=== PATIENT | male | born 1960 | race Caucasian/White ===

== ENCOUNTER 2017-10-09 13:39 | Emergency (ER) | payer OTHER, BC ==
[2017-10-09 13:43] VITALS: TEMP 98; BMI 31.1
[2017-10-09] MEDS ORDERED: KETOROLAC TROMETHAMINE 30 MG/1 ML VIAL IM ONE (13:59)
[2017-10-09] MEDS ORDERED: KETOROLAC TROMETHAMINE 30 MG/1 ML VIAL ONE (14:02)
--- NOTE | 2017-10-09 14:03 | PDOC ---
History of Present Illness - General Chief Complaint: Pain, Acute Stated Complaint: LEFT LOWER BACK PAIN Time Seen by Provider: 10/09/17 13:41 History Source: Patient, Old Records Exam Limitations: No Limitations - History of Present Illness Initial Comments: 10/09/17 14:04 57 year old male c/ hx of L3-L4 disc fusion 2010, hx chronic pain on suboxone presents with acute on chronic back pain. Pt reports that the pain has been exacerbated since July 2017. He has been utilizing complementary medicine, including chiropractor and accupuncture with some relief. Has been taking his suxboxone. On 09/14, the patient has received an MRI which was reportedly a L2 herniation. Pt has pain that radiates from the back to the left leg. Worse with movements. Pt last took his dose of suboxone yesterday. Denies urinary or bowel incontinence. Denies saddle anesthesia. Past History - Past Medical History Allergies/Adverse Reactions: Allergies Allergy/AdvReac Type Severity Reaction Status Date / Time No Known Allergies Allergy Verified 10/09/17 14:01 Home Medications: Ambulatory Orders Duloxetine HCl [Cymbalta] 30 mg PO DAILY 10/09/17 Losartan Potassium [Cozaar] 0 mg PO DAILY 10/09/17 Metoprolol Succinate 0 mg PO DAILY 10/09/17 Naproxen 500 mg PO BID PRN #20 tablet 10/09/17 Oxycodone HCl/Acetaminophen [Percocet 5-325 mg Tablet] 1 tab PO Q6H PRN #20 tablet MDD 4 10/09/17 COPD: No DVT: No HTN: Yes - Suicide/Smoking/Psychosocial Hx Smoking History: Never smoked Have you smoked in the past 12 months: No Hx Alcohol Use: No Drug/Substance Use Hx: No Substance Use Type: None Review of Systems - Review of Systems Able to Perform ROS?: Yes Comments:: 10/09/17 14:15 GENERAL/CONSTITUTIONAL: No fever or chills. No weakness. HEAD, EYES, EARS, NOSE AND THROAT: No change in vision. No ear pain or discharge. No sore throat. CARDIOVASCULAR: No chest pain or shortness of breath. RESPIRATORY: No cough, wheezing, or hemoptysis. GASTROINTESTINAL: No nausea, vomiting, diarrhea or constipation. GENITOURINARY: No dysuria, frequency, or change in urination. MUSCULOSKELETAL: No joint or muscle swelling or pain. No neck. + back pain SKIN: No rash NEUROLOGIC: No headache, vertigo, loss of consciousness, or change in strength/ sensation. ENDOCRINE: No increased thirst. No abnormal weight change. HEMATOLOGIC/LYMPHATIC: No anemia, easy bleeding, or history of blood clots. ALLERGIC/IMMUNOLOGIC: No hives or skin allergy. *Physical Exam - Vital Signs Last Vital Signs Temp Pulse Resp BP Pulse Ox 98 F 96 H 18 161/103 99 10/09/17 13:40 10/09/17 13:40 10/09/17 13:40 10/09/17 13:40 10/09/17 13:40 - Physical Exam Comments: 10/09/17 14:15 GENERAL: Awake, alert, and fully oriented, in no acute distress HEAD: No signs of trauma EYES: EOMI, sclera anicteric, conjunctiva clear ENT: Auricles normal inspection, hearing grossly normal, nares patent, oropharynx clear without exudates. Moist mucosa NECK: Normal ROM, supple BACK: TTP left lower back. s/p surgical scar on lumbar spine. Reproducible with palpation. EXTREMITIES: Normal range of motion, no edema. No clubbing or cyanosis. No cords, erythema, or tenderness NEUROLOGICAL: Cranial nerves II through XII grossly intact. Normal speech, normal gait SKIN: Warm, Dry, normal turgor, no rashes or lesions noted. Medical Decision Making - Medical Decision Making 10/09/17 14:19 Vital Signs Temp Pulse Resp BP Pulse Ox 98 F 87 18 160/101 99 10/09/17 13:40 10/09/17 14:10 10/09/17 13:40 10/09/17 14:10 10/09/17 13:40 Acute on chronic back pain likely 2/2 herniated L2 disc. [employer] Registry Reviewed: Patient Name: José Hansen Date: 1960 Address: [address] [place] [id number] Sex: Male Rx Written Rx Dispensed Drug Quantity Days Supply Prescriber Name 09/22/2017 09/26/2017 zolpidem tart er 12.5 mg tab 15 15 Jaime Merlos MD 09/19/2017 09/19/2017 buprenorphine 8 mg tablet sl 45 15 Jaime Merlos C 09/12/2017 09/12/2017 buprenorphine 8 mg tablet sl 21 7 Jaime Merlos C Patient Name: José Hansen Date: 1960 Address: [address] [place] [address] [place] [address] Sex: Male Rx Written Rx Dispensed Drug Quantity Days Supply Prescriber Name 08/29/2017 08/29/2017 buprenorphine 8 mg tablet sl 45 15 Jaime Merlos MD 08/23/2017 08/23/2017 buprenorphine 8 mg tablet sl 18 6 Jaime Merlos MD 08/02/2017 08/03/2017 buprenorphine 2 mg tablet sl 150 30 Jaime Merlos MD 07/18/2017 07/18/2017 buprenorphine 2 mg tablet sl 90 30 Jaime Merlos MD 06/13/2017 06/15/2017 buprenorphine 2 mg tablet sl 112 29 Jaime Merlos MD 05/26/2017 05/26/2017 buprenorphine 2 mg tablet sl 90 30 Jaime Merlos MD 04/04/2017 05/24/2017 buprenorphine 8 mg tablet sl 14 9 Jaime Merlos MD 05/03/2017 05/03/2017 buprenorphine 2 mg tablet sl 50 25 Jaime Merlos MD 04/12/2017 04/13/2017 buprenorphine 2 mg tablet sl 45 15 Jaime Merlos MD 03/25/2017 03/25/2017 buprenorphine 8 mg tablet sl 22 15 Jaime Merlos MD 03/17/2017 03/17/2017 buprenorphine-naloxone 2-0.5 mg sl tablet 90 30 Jaime Merlos MD 03/04/2017 03/04/2017 zolpidem tartrate 10 mg tablet 7 7 Jaime Merlos MD 03/04/2017 03/04/2017 oxycodone hcl er 40 mg tablet 86 30 Jaime Merlos MD 03/04/2017 03/04/2017 oxycodone hcl 15 mg tablet 135 23 Jaime Merlos MD 02/03/2017 02/03/2017 zolpidem tartrate 10 mg tablet 7 7 Jaime Merlos MD 02/03/2017 02/03/2017 oxycodone hcl 15 mg tablet 135 23 Jaime Merlos MD 02/03/2017 02/03/2017 oxycodone hcl er 40 mg tablet 86 30 Jaime Merlos MD 01/03/2017 01/03/2017 oxycodone hcl 20 mg tablet 135 23 Jaime Merlos MD 01/03/2017 01/03/2017 oxycodone hcl er 40 mg tablet 86 29 Jaime Merlos MD 12/07/2016 12/08/2016 oxycodone hcl er 40 mg tablet 86 30 Jaime Merlos MD 12/07/2016 12/08/2016 oxycodone hcl 20 mg tablet 135 30 Jaime Merlos MD 11/09/2016 11/09/2016 oxycodone hcl er 40 mg tablet 86 30 Jaime Merlos MD 11/09/2016 11/09/2016 oxycodone hcl 20 mg tablet 135 23 Jaime Merlos MD 10/28/2016 11/06/2016 oxycodone hcl er 40 mg tablet 9 3 Luna Luna 10/28/2016 11/06/2016 oxycodone hcl 15 mg tablet 12 3 Luna Luna The patient's information when given to me confirms his [employer]ENT registry. Pt absolutely reports to me that his last dose of suboxone was over 24 hours ago. I advised the patient regarding the concerns for potentially mixing suboxone with percocet. The patient states that he understands not to mix the two. I suspect that the patient is having acute on chronic back pain. No red flags. Will give a short course of naproxen and percocet. Pt will follow up with his doctor this week. *DC/Admit/Observation/Transfer Diagnosis at time of Disposition: Back pain Qualifiers: Back pain location: back pain in unspecified location Chronicity: unspecified Back pain laterality: unspecified Qualified Code(s): M54.9 - Dorsalgia, unspecified - Discharge Dispostion Disposition: HOME Condition at time of disposition: Stable Decision to Admit order: No - Prescriptions Prescriptions: Naproxen 500 mg PO BID PRN #20 tablet PRN Reason: Back Pain Oxycodone HCl/Acetaminophen [Percocet 5-325 mg Tablet] 1 tab PO Q6H PRN #20 tablet MDD 4 PRN Reason: Severe Back Pain - Referrals Referrals: Jaime Merlos MD [Non Staff, Medical] - - Patient Instructions Printed Discharge Instructions: DI for Low Back Pain Additional Instructions: Please take 500 mg naproxen every 12 hours as needed for pain. For additional relief, please take a tablet of percocet every 6 hours as needed. Please do not mix percocet with suboxone. Mixing these medications will make you feel ill. You must follow up with Dr. Jaime Merlos and discuss what has happened with your back. Call tomorrow and schedule an appointment. - Post Discharge Activity
[2017-10-09 14:10] VITALS: BP 160/101; PULSE 87
== END 2017-10-09 14:10 | disposition home or self-care (01) ==
LOC: FER 13:39
PROC: 3E0233Z Introduction of Anti-inflammatory into Muscle, Percutaneous Approach (ICD-10-PCS; principal; 2017-10-09)
PROC: 3E0233Z Introduction of Anti-inflammatory into Muscle, Percutaneous Approach (ICD-10-PCS; 2017-10-09)
DX: M54.9 Dorsalgia, unspecified (principal); I10 Essential (primary) hypertension; G89.29 Other chronic pain
CPT/HCPCS: 99281-25

== ENCOUNTER 2017-12-19 09:12 | Inpatient (IN) | payer OTHER, BC ==
--- NOTE | 2017-12-19 10:06 | PDOC ---
History of Present Illness - General Chief Complaint: Eye Problem Stated Complaint: forgetfull Time Seen by Provider: 12/19/17 09:22 History Source: Patient Exam Limitations: No Limitations - History of Present Illness Initial Comments: 12/19/17 10:06 57y M hx of htn presenst with complaint of vision changes. 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 The pt denies any n/v, severe headache, numbness/tinglign/weakness , back pain, neck pain, cp, palpitations, n/v, abd pain, diarrhea, melena, bpr, dysuria, fever/chills. pt has enver felt lik this before. tPA Exclusion Checklist 0-3hr - Time Elapsed Date last known well: 12/15/17 Time last known well: 20:00 Elaspsed time: 3 Day(s) and 19 Hour(s) and 6 Minutes - Thrombolytic Therapy Candidate Is the patient eligible for Thrombolytic Therapy?: No - Ineligibility reason(s) Reasons No tPA given: Outside of window - delayed arrival NIH Stroke Scale - Last Known Well Date/Time & Onset Date Last Known Well: 12/15/17 Time Last Known Well: 20:00 - Initial Evaluation Level of consciousness: Alert Ask patient the month and their age: Answers both correctly Ask patient to open & close eyes; make fist and let go: Obeys both correctly Best gaze (horizontal eye movement): Normal Visual field testing: Complete hemianopia Facial paresis (Show teeth/raise eyebrows/close eyes tight): Normal symmetrical movement Motor Function: Left Arm: Normal Motor Function: Right Arm: Normal (extends arm 90 (or 45) degrees for 10 seconds without drift Motor Function: Left Leg: Normal (extends leg 30 degrees for 5 seconds without drift) Motor Function: Right Leg: Normal (extends leg 30 degrees for 5 seconds without drift) Limb Ataxia: No ataxia Sensory(Use pinprick test arms,legs,trunk,face/side to side): Normal Best language (Describe picture, name items, read sentences): No Aphasia Dysarthria (read several words): Normal articulation Extinction and Inattention: No abnormality - Total Score NIH Stroke Scale Score: 2 Past History - Past Medical History Allergies/Adverse Reactions: Allergies Allergy/AdvReac Type Severity Reaction Status Date / Time No Known Allergies Allergy Verified 10/09/17 14:01 Home Medications: Ambulatory Orders Duloxetine HCl [Cymbalta] 60 mg PO DAILY 10/09/17 Naproxen 500 mg PO BID PRN #20 tablet 10/09/17 Buprenorphine HCl/Naloxone HCl [Zubsolv 8.6-2.1 mg Tablet Sl] 0.25 each SL DAILY 12/19/17 Losartan Potassium [Cozaar -] 50 mg PO DAILY 12/19/17 Metoprolol Succinate [Toprol Xl] 50 mg PO DAILY 12/19/17 COPD: No CHF: No DVT: No HTN: Yes - Suicide/Smoking/Psychosocial Hx Smoking History: Never smoked Have you smoked in the past 12 months: No Information on smoking cessation initiated: No Hx Alcohol Use: No Drug/Substance Use Hx: No Substance Use Type: None Review of Systems - Review of Systems Able to Perform ROS?: Yes Comments:: 12/19/17 10:08 Constitutional - no reported Fever, Chills, HEENT: +vision changes, no reported sore throat Respiratory: no reported cough, sob, hemoptysis Cardiac: no reported chest pain, palpitations, light headedness, leg swelling Abd/GI: no reported abd pain, nausea, vomiting, blood per rectum, melena, diarrhea : no reported dysuria, frequency, discharge Musculskelatal - no reported back pain, joint swelling skin - no reported bruising, erythema, rash neurological: no reported headache, numbness, focal weakness, tingling, ataxia, hematologic: no reported easy bruising, easy bleeding *Physical Exam - Vital Signs Last Vital Signs Temp Pulse Resp BP Pulse Ox 98.3 F 83 20 158/108 H 100 12/19/17 09:12 12/19/17 09:12 12/19/17 09:12 12/19/17 09:12 12/19/17 09:12 - Physical Exam Comments: 12/19/17 10:08 GENERAL: The patient is awake, alert, and fully oriented, Nontoxic - in no acute distress. HEAD: Normocephalic, atraumatic. EYES: extraocular movements intact, sclera anicteric, conjunctiva clear. ENT: Normal voice, Moist mucous membranes. NECK: Normal range of motion, supple LUNGS: Breath sounds equal, clear to auscultation bilaterally. No wheezes, no rhonchi, no rales. HEART: Regular rate and rhythm, normal S1 and S2 without murmur, rub or gallop. ABDOMEN: Soft, nontender, normoactive bowel sounds. No guarding, no rebound. . No CVA tenderness EXTREMITIES: Normal range of motion, no edema. No clubbing or cyanosis. No cords, erythema, or tenderness. PSYCH: Normal mood, normal affect. SKIN: Warm, Dry, normal turgor, NEURO: Mental status: The patient is oriented x3. Cranial nerves: facial sensation symmetric, facial motor symmetric, on confrontation - decreased peripheral vision on L side b/l Motor: The upper extremities are 5 over 5 in all muscle groups. The lower extremities are 5 over 5 in all muscle groups. Negative pronator drift Sensation: Sensation is intact to light touch throughout. romberg negative Cerebellar: Pjmzmx-oftryq-ugam is normal in both upper extremities. rapid alternating movements are normal. Gait: Normal. Heel and toe walking are normal. Tandem gait is normal. Heart Score/ECG Review - ECG Impressions Comment:: 12/19/17 10:54 Twelve-lead EKG was performed and reviewed by me. There is normal sinus rhythm with a normal rate. The axis is normal. abnormal r wave prgoression ED Treatment Course - LABORATORY CBC & Chemistry Diagram: 12/19/17 10:39 12/19/17 10:39 Medical Decision Making - Medical Decision Making 12/19/17 10:10 Patient presenting with hemianopsia on L eye yesi ck labs, ekg, to r/o anemia, metabolic derangement, arrythemia ct head to r/o cva, mass effect anticipate neuro consultation and may need MRI 12/19/17 13:[address] noted for gith posterior cebral artery territory infarct will admit for further management paged neuro 12/19/17 13:30 Case halley Young requests MRI / MRA brain and cardiology consutlation 12/19/17 13:35 case halley kohler with admissio nfor further management pt did not take his BP meds this morning will give him his meds now will admit to tele under dr. nettles service Case discussed in detail with admitting physician including history, physical exam and ancillary studies. Admitting physician has assumed care for the patient, will follow all pending diagnostics and will complete the evaluation and treatment. 12/19/17 13:49 case will be admitted under dr. kern service requets transfer to [facility] for admission for stroke unit *DC/Admit/Observation/Transfer Diagnosis at time of Disposition: CVA (cerebral vascular accident) Qualifiers: CVA mechanism: occlusion Precerebral and cerebral artery: posterior cerebral artery Laterality of affected vessel: right Qualified Code(s): I63.531 - Cerebral infarction due to unspecified occlusion or stenosis of right posterior cerebral artery Hypertension Qualifiers: Hypertension type: unspecified Qualified Code(s): I10 - Essential (primary) hypertension - Discharge Dispostion Condition at time of disposition: Guarded Decision to Admit order: Yes - Referrals - Patient Instructions - Post Discharge Activity
[2017-12-19 11:32] LABS: ALBUMIN 3.7 g/dl (3.5-5.0); ALK PHOS 114 U/L (32-92); ANION GAP 7 MMOL/L (8-16); BILIRUBIN,TOTAL 0.6 mg/dl (0.2-1.0); BLOOD UREA NITROGEN 14 mg/dl (7-18); CALCIUM 9.1 mg/dl (8.4-10.2); CHLORIDE 102 mmol/L (98-107); CO2 27 mmol/L (22-28); CREATININE 0.7 mg/dl (0.6-1.3); GLUCOSE,RANDOM 131 mg/dl (74-106); POTASSIUM 3.9 mmol/L (3.5-5.1); SGOT/AST 21 U/L (10-42); SGPT/ALT 24 U/L (10-40); SODIUM 136 mmol/L (136-145); TOT PROT 6.5 g/dl (6.4-8.3)
[2017-12-19 13:08] LABS: BASO % 0.7 % (0-2.0); EOS % 2.6 % (0-4.5); HEMATOCRIT 42.4 % (35.4-49); HEMOGLOBIN 13.9 GM/dl (11.7-16.9); LYMPH % 21.1 % (8-40); MCH 29.1 pg (25.7-33.7); MCHC 32.7 g/dl (32.0-35.9); MEAN PLT VOLUME 7.4 fl (7.5-11.1); MONO % 7.6 % (3.8-10.2); PLATELET COUNT 334 K/MM3 (134-434); RBC 4.76 M/mm3 (4.00-5.60); RDW 12.8 % (11.9-15.9); WHITE BLOOD COUNT 8.7 K/mm3 (4.0-10.8)
[2017-12-19] MEDS ORDERED: ASPIRIN 81 MG CHEWABLE TABLETS PO ONE (13:23)
[2017-12-19] MEDS ORDERED: ASPIRIN 81 MG CHEWABLE TABLETS ONE (13:33)
[2017-12-19] MEDS ORDERED: METOPROLOL TARTRATE 50 MG TABLET (FP) PO ONE (13:36)
[2017-12-19] MEDS ORDERED: LOSARTAN POTASSIUM 50 MG TABLET (FP) PO ONE (13:36)
[2017-12-19] MEDS ORDERED: morphine CARPU-JECT 4 MG/1 ML DISP.SYRIN IVPUSH ONE (16:31)
[2017-12-19] MEDS ORDERED: morphine SULFATE 4 MG/ML VIAL ONE (16:34)
[2017-12-19] MEDS ORDERED: FLU VACCINE QUAD 60 MCG/0.5 ML (MDV 18-19) IM ONE (18:49)
[2017-12-19 18:51] VITALS: BMI 31.5
--- NOTE | 2017-12-19 19:50 | HP ---
Admitting History and Physical - Primary Care Physician PCP: Hudson Shepard - Admission History of Present Illness: 57y M hx of htn presenst with complaint of vision changes. 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 The pt denies any n/v, severe headache, numbness/tinglign/weakness , back pain, neck pain, cp, palpitations, n/v, abd pain, diarrhea, melena, bpr, dysuria, fever/chills. pt has enver felt lik this before. - Past Medical History Cardiovascular: Yes: HTN - Smoking History Smoking history: Never smoked Have you smoked in the past 12 months: No - Alcohol/Substance Use Hx Alcohol Use: No Home Medications - Allergies Allergies/Adverse Reactions: Allergies Allergy/AdvReac Type Severity Reaction Status Date / Time No Known Allergies Allergy Verified 10/09/17 14:01 - Home Medications Home Medications: Ambulatory Orders Duloxetine HCl [Cymbalta] 60 mg PO DAILY 10/09/17 Naproxen 500 mg PO BID PRN #20 tablet 10/09/17 Buprenorphine HCl/Naloxone HCl [Zubsolv 8.6-2.1 mg Tablet Sl] 0.25 each SL DAILY 12/19/17 Losartan Potassium [Cozaar -] 50 mg PO DAILY 12/19/17 Metoprolol Succinate [Toprol Xl] 50 mg PO DAILY 12/19/17 Clopidogrel Bisulfate [Plavix -] 75 mg PO DAILY #30 tablet 12/20/17 Rosuvastatin Calcium [Crestor] 5 mg PO DAILY #30 tablet 12/20/17 Physical Examination Vital Signs: Vital Signs Temperature 97.8 F 12/19/17 18:26 Pulse Rate 76 12/19/17 18:52 Respiratory Rate 16 12/19/17 18:52 Blood Pressure 142/94 12/19/17 18:52 O2 Sat by Pulse Oximetry (%) 97 12/19/17 18:26 Constitutional: Yes: No Distress HENT: Yes: Atraumatic Neck: Yes: Supple Cardiovascular: Yes: Regular Rate and Rhythm Respiratory: Yes: CTA Bilaterally Gastrointestinal: Yes: Normal Bowel Sounds Extremities: Yes: WNL Edema: No Peripheral Pulses WNL: Yes Neurological: Yes: Alert, Oriented ...Motor Strength: WNL Labs: CBC, BMP 12/19/17 10:39 12/19/17 10:39 Problem List - Problems (1) CVA (cerebral vascular accident) Assessment/Plan: head ct done mri pending neuro consult PT eval Code(s): I63.9 - CEREBRAL INFARCTION, UNSPECIFIED Qualifiers: CVA mechanism: occlusion Precerebral and cerebral artery: posterior cerebral artery Laterality of affected vessel: right Qualified Code(s): I63.531 - Cerebral infarction due to unspecified occlusion or stenosis of right posterior cerebral artery (2) Hypertension Assessment/Plan: on meds stable Code(s): I10 - ESSENTIAL (PRIMARY) HYPERTENSION Qualifiers: Hypertension type: essential hypertension Qualified Code(s): I10 - Essential (primary) hypertension Assessment/Plan Laboratory Tests 12/19/17 12/19/17 10:39 10:39 WBC 8.7 RBC 4.76 Hgb 13.9 Hct 42.4 MCV 89.0 MCH 29.1 MCHC 32.7 RDW 12.8 Plt Count 334 MPV 7.4 L Absolute Neuts (auto) 5.9 Neutrophils % 68.0 Lymphocytes % 21.1 Monocytes % 7.6 Eosinophils % 2.6 Basophils % 0.7 Sodium 136 Potassium 3.9 Chloride 102 Carbon Dioxide 27 Anion Gap 7 L BUN 14 Creatinine 0.7 Creat Clearance w eGFR > 60 Random Glucose 131 H Calcium 9.1 Total Bilirubin 0.6 AST 21 ALT 24 Alkaline Phosphatase 114 H Total Protein 6.5 Albumin 3.7 Active Medications Generic Name Dose Route Start Last Admin Trade Name Freq PRN Reason Stop Dose Admin Acetaminophen 650 mg 12/20/17 16:57 12/20/17 17:10 Tylenol - PO 650 mg Q6H PRN Administration FEVER Duloxetine HCl 60 mg 12/20/17 10:00 12/20/17 09:11 Cymbalta - PO 60 mg DAILY MARIAELENA Administration Losartan Potassium 100 mg 12/20/17 11:24 Cozaar - PO DAILY MARIAELENA Metoprolol Succinate 50 mg 12/20/17 10:00 12/20/17 09:11 Toprol Xl - PO 50 mg DAILY MARIAELENA Administration Oxycodone HCl 10 mg 12/20/17 09:05 12/20/17 16:00 Roxicodone - PO 10 mg Q8H PRN Administration PAIN SCALE 8-9 Pramipexole Dihydrochloride 0.25 mg 12/19/17 23:45 12/19/17 23:58 Mirapex - PO 0.25 mg HS MARIAELENA Administration
--- NOTE | 2017-12-19 23:37 | CONSULT ---
Consult - text type - Consultation Consultation Note: NEUROLOGY CONSULTATION is greatly appreciated: Events reviewed and discussed with Drs. Shepard and Talya, whose excellent description of patient's presenting symptoms is noted. This 57 yo RH man is a retired [employer] and currently drives actors in a van. PMH sig for HTN on metoprolol and losartan and hypercholesterolemia off Meds. + FH of stroke in his father at age 55. Chronic LBP radiating into both legs in varying distributions over at least 8 years. S/P 4 LS surgeries without change in symptoms. Worst at night with aching, stabbing and shooting pains, most recently over anterior thighs (R>L) causing chronic insomnia (on Alprazolam q HS). On Tuesday morning felt unwell with a foggy feeling in his head. Noted visual loss while driving but didn't report it. Tuesday PM felt disoriented. When symptoms persisted he came to ER where BP was 170/90. CT/MRI (reviewed) reveal a well-demarcated right occipital CVA in the posterior cerebral distribution and a clear left internal capsule lacunar infarct. CT Angio/ MR Angio discussed wit Dr. Babin but not yet performed. ARTEM: No bruits. Cor reg. LS laminectomy scar. Distal pulses +/+ NEURO: MS/speech : Normal CN II-XII: left inferior quadrantanopsia. Otherwise normal Motor: No drift or tremor. Normal strength and TATYANA's. Normal reflexes except absent AJ's. Toes downgoing. Coord: No FTN Dystaxia Sensory: Sl. Decreased vibration in feet. 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 Carotid duplex doppler Cardiology evaluation/ Echo/ Out patient halter or loop recorder Neurology follow-up as out patient. Thank you very much, Yovani Young MD
[2017-12-19] MEDS ORDERED: PRAMIPEXOLE DIHYDROCHLORIDE 0.25 MG TABLET PO SCH (23:45)
[2017-12-20] MEDS: oxyCODONE HCL 5 MG TABLET PO PRN ×2 (09:11→16:00)
[2017-12-20] MEDS ORDERED: DULoxetine HCL 30 MG CAPSULE.DR (FP) PO SCH (10:00)
[2017-12-20] MEDS ORDERED: LOSARTAN POTASSIUM 50 MG TABLET (FP) PO SCH ×2 (10:00→11:24)
[2017-12-20] MEDS ORDERED: CLOPIDOGREL BISULFATE 75 MG TABLET (FP) PO SCH (10:00)
--- NOTE | 2017-12-20 11:13 | CON.CARD ---
Consult Consult Specialty:: Cardiology Referred by:: Dr. Shepard Reason for Consultation:: Cardiac evaluation - History of Present Illness Chief Complaint: Dizziness, loss of peripheral vision History of Present Illness: Patient is a 57 year old male with underlying history of HTN who presented with loss of peripheral vision and was not feeling well last Tuesday. He complained of some headache and dizziness and was bumping into objects. He denies chest pain, SOB or palpitations. He denies paroxysmal nocturnal dyspnea or orthopnea. He denies fever or chills. He denies nausea, vomiting, diarrhea or abdominal pain. He denies any prior syncopal episodes. CT of head and Brain MRI revealed right posterior artery territory acute/subacute non-hemorrhagic infarct. Neurology input was noted. He denies any history of AF. PMD: Roland Gardiner MD of [facility] in [facility] - History Source History Provided By: Patient, Medical Record Limitations to Obtaining History: No Limitations - Past Medical History Cardio/Vascular: Yes: HTN - Past Surgical History Additional Surgical History: Back surgery for lumbar disc - Alcohol/Substance Use Hx Alcohol Use: Yes (social) - Smoking History Smoking history: Never smoked Have you smoked in the past 12 months: No Home Medications - Allergies Allergies/Adverse Reactions: Allergies Allergy/AdvReac Type Severity Reaction Status Date / Time No Known Allergies Allergy Verified 10/09/17 14:01 - Home Medications Home Medications: Ambulatory Orders Duloxetine HCl [Cymbalta] 60 mg PO DAILY 10/09/17 Naproxen 500 mg PO BID PRN #20 tablet 10/09/17 Buprenorphine HCl/Naloxone HCl [Zubsolv 8.6-2.1 mg Tablet Sl] 0.25 each SL DAILY 12/19/17 Losartan Potassium [Cozaar -] 50 mg PO DAILY 12/19/17 Metoprolol Succinate [Toprol Xl] 50 mg PO DAILY 12/19/17 Family Disease History - Family Disease History Other Family History: History of DM, HTN, stroke and CAD (father) Review of Systems - Review of Systems Constitutional: denies: Chills, Fever Eyes: reports: Recent Change in Vision Cardiovascular: denies: Chest Pain, Palpitations, Shortness of Breath Respiratory: denies: Cough, Hemoptysis, Orthopnea, PND, SOB, SOB on Exertion, Wheezing Gastrointestinal: denies: Abdominal Pain, Constipation, Diarrhea, Melena, Nausea , Rectal Bleeding, Vomiting Genitourinary: denies: Dysuria, Hematuria Musculoskeletal: reports: Back Pain. denies: Joint Pain Neurological: reports: Dizziness, Headache, Weakness. denies: Change in LOC, Change in Speech, Numbness, Parasthesia, Seizure, Syncope, Tremors, Unsteady Gait Vital Signs: Vital Signs Temperature 98.4 F 12/20/17 09:00 Pulse Rate 80 12/20/17 09:00 Respiratory Rate 18 12/20/17 09:00 Blood Pressure 150/111 H 12/20/17 09:00 O2 Sat by Pulse Oximetry (%) 98 12/20/17 09:00 Eyes: Yes: PERRL HENT: Yes: Atraumatic Neck: Yes: Supple Respiratory: Yes: CTA Bilaterally Gastrointestinal: Yes: Normal Bowel Sounds, Soft. No: Tenderness Cardiovascular: Yes: Regular Rate and Rhythm JVD: No Carotid Bruit: No PMI: Non-Displaced Heart Sounds: Yes: S1, S2 Murmur: No: Systolic Murmur, Diastolic Murmur Edema: No - Other Data Labs, Other Data: CBC, BMP 12/19/17 10:39 12/19/17 10:39 Troponin, BNP 12/19/17 21:00 Troponin I < 0.02 Laboratory Results - last 24 hr 12/19/17 12/19/17 12/19/17 10:39 10:39 21:00 WBC 8.7 RBC 4.76 Hgb 13.9 Hct 42.4 MCV 89.0 MCH 29.1 MCHC 32.7 RDW 12.8 Plt Count 334 MPV 7.4 L Absolute Neuts (auto) 5.9 Neutrophils % 68.0 Lymphocytes % 21.1 Monocytes % 7.6 Eosinophils % 2.6 Basophils % 0.7 Sodium 136 Potassium 3.9 Chloride 102 Carbon Dioxide 27 Anion Gap 7 L BUN 14 Creatinine 0.7 Creat Clearance w eGFR > 60 Random Glucose 131 H Hemoglobin A1c % Calcium 9.1 Total Bilirubin 0.6 AST 21 ALT 24 Alkaline Phosphatase 114 H Creatine Kinase 80 Troponin I < 0.02 Total Protein 6.5 Albumin 3.7 Triglycerides Cholesterol Total LDL Cholesterol HDL Cholesterol TSH 12/20/17 12/20/17 06:00 06:00 WBC RBC Hgb Hct MCV MCH MCHC RDW Plt Count MPV Absolute Neuts (auto) Neutrophils % Lymphocytes % Monocytes % Eosinophils % Basophils % Sodium Potassium Chloride Carbon Dioxide Anion Gap BUN Creatinine Creat Clearance w eGFR Random Glucose Hemoglobin A1c % 5.9 Calcium Total Bilirubin AST ALT Alkaline Phosphatase Creatine Kinase Troponin I Total Protein Albumin Triglycerides 126 Cholesterol 222 H Total LDL Cholesterol 170 H HDL Cholesterol 38 L TSH 0.85 NSR, poor R progression, no ST-T abnormality Echo: Pending Imaging - Results Cat Scan: Report Reviewed MRI: Report Reviewed EKG: Report Reviewed Problem List - Problems (1) Hypercholesterolemia Code(s): E78.00 - PURE HYPERCHOLESTEROLEMIA, UNSPECIFIED (2) Vision abnormalities Code(s): H53.9 - UNSPECIFIED VISUAL DISTURBANCE (3) CVA (cerebral vascular accident) Code(s): I63.9 - CEREBRAL INFARCTION, UNSPECIFIED Qualifiers: CVA mechanism: occlusion Precerebral and cerebral artery: posterior cerebral artery Laterality of affected vessel: right Qualified Code(s): I63.531 - Cerebral infarction due to unspecified occlusion or stenosis of right posterior cerebral artery (4) Hypertension Code(s): I10 - ESSENTIAL (PRIMARY) HYPERTENSION Qualifiers: Hypertension type: essential hypertension Qualified Code(s): I10 - Essential (primary) hypertension (5) Back pain Code(s): M54.9 - DORSALGIA, UNSPECIFIED Qualifiers: Back pain location: back pain in unspecified location Chronicity: unspecified Back pain laterality: unspecified Qualified Code(s): M54.9 - Dorsalgia, unspecified Assessment/Plan 1. 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 HTN 3. Hypercholesterolemia 4. Back pain due to vertebral disc disease PLAN: 1. Neuro input noted 2. Continue Metoprolol ER and Losartan - uptitrate as BP is not at goal 3. Add Statin therapy (Atorvastatin or Rosuvastatin) 4. Plavix 5. Echocardiography to assess LV/RV and valvular function 6. Further cardiac work up may include external loop monitoring to assess AF as cause of above stroke. 7. Probable sleep study can also be done as outpatient to rule out DELFINA Follow up in office when discharged Thank you for consultative opportunity Ramon Zavala MD
--- NOTE | 2017-12-20 12:17 | ECHO ---
Name: SALLYJOHN Exam:Adult Echocardiogram Study Date: 12/20/2017 09:34 AM Age: 57 yrs Reason For Study: CVA Height: 71 in Weight: 222 lb BSA: 2.2 m2 MMode/2D Measurements & Calculations IVSd: 0.96 cm Ao root diam: 3.1 cm LVIDd: 5.1 cm LA dimension: 3.8 cm LVIDs: 3.4 cm LVPWd: 0.89 cm EDV(Teich): 124.0 ml ESV(Teich): 47.4 ml Doppler Measurements & Calculations MV E max loyd: 41.5 cm/sec Ao V2 max: 125.6 cm/sec MV A max loyd: 71.6 cm/sec Ao max P.3 mmHg MV E/A: 0.58 LV V1 max P.5 mmHg Med Peak E' Loyd: 4.2 cm/sec LV V1 max: 79.2 cm/sec Med E/e': 9.9 Lat Peak E' Loyd: 4.8 cm/sec Lat E/e': 8.7 Procedure A two-dimensional transthoracic echocardiogram with color flow and Doppler was performed. The study w as technically difficult with many images being suboptimal in quality. The patient was in normal sinus r hythm during the exam. Left Ventricle Left ventricular systolic function is normal. Ejection Fraction = 60%. E/A reversal consistent with b ut not diagnostic of poor LV compliance. Right Ventricle The right ventricle is not well visualized. The right ventricle is grossly normal size. The right smita tricular systolic function is grossly normal. Atria The left atrial size is normal. Right atrial size is normal. Mitral Valve The mitral valve is normal. There is no mitral regurgitation noted. Tricuspid Valve The tricuspid valve is normal. There is trace tricuspid regurgitation. Aortic Valve The aortic valve opens well. The aortic valve is normal in structure and function. No aortic regurgit ation is present. Pulmonic Valve The pulmonic valve is not well visualized. The pulmonic valve is not well seen, but is grossly normal . There is no pulmonic valvular regurgitation. Great Vessels The aortic root is normal size. Pericardium/Pleura Possible trace pericardial effusion that is not well visualized. Interpretation Summary The study was technically difficult with many images being suboptimal in quality. Left ventricular systolic function is normal. E/A reversal consistent with but not diagnostic of poor LV compliance The right ventricular systolic function is grossly normal. There is trace tricuspid regurgitation. Possible trace pericardial effusion that is not well visualized. MD Anastacio Mccormack 12/20/2017 12:16 PM
--- NOTE | 2017-12-20 13:15 | EKG ---
Test Reason : Blood Pressure : / mmHG Vent. Rate : 065 BPM Atrial Rate : 065 BPM P-R Int : 188 ms QRS Dur : 100 ms QT Int : 424 ms P-R-T Axes : 037 035 049 degrees QTc Int : 440 ms NORMAL SINUS RHYTHM CANNOT RULE OUT ANTERIOR INFARCT , AGE UNDETERMINED ABNORMAL ECG NO PREVIOUS ECGS AVAILABLE Confirmed by MD ANOOP, MARIBELL ([id number]) on 12/20/2017 1:15:30 PM Referred By: CARLOS CAMPOS Confirmed By:MARIBELL DAVALOS MD
--- NOTE | 2017-12-20 15:34 | DS ---
Physical Examination Vital Signs: Vital Signs Temperature 97.6 F 12/20/17 13:20 Pulse Rate 71 12/20/17 13:20 Respiratory Rate 18 12/20/17 13:20 Blood Pressure 123/71 12/20/17 13:20 O2 Sat by Pulse Oximetry (%) 98 12/20/17 09:00 Constitutional: Yes: No Distress HENT: Yes: Atraumatic Neck: Yes: Supple Cardiovascular: Yes: Regular Rate and Rhythm Respiratory: Yes: CTA Bilaterally Gastrointestinal: Yes: Normal Bowel Sounds Extremities: Yes: WNL Edema: No Peripheral Pulses WNL: Yes Neurological: Yes: Alert, Oriented Labs: CBC, BMP 12/19/17 10:39 12/19/17 10:39 Discharge Summary Reason For Visit: STROKE Current Active Problems CVA (cerebral vascular accident) (Acute) Hypercholesterolemia (Acute) Hypertension (Acute) Vision abnormalities (Acute) Condition: Guarded - Instructions Referrals: Yovani Young MD [Staff Physician] - Hudson Shepard MD [Staff Physician] - Christiano Boucher MD [Staff Physician] - - Home Medications Comprehensive Discharge Medication List: Ambulatory Orders Duloxetine HCl [Cymbalta] 60 mg PO DAILY 10/09/17 Naproxen 500 mg PO BID PRN #20 tablet 10/09/17 Buprenorphine HCl/Naloxone HCl [Zubsolv 8.6-2.1 mg Tablet Sl] 0.25 each SL DAILY 12/19/17 Losartan Potassium [Cozaar -] 50 mg PO DAILY 12/19/17 Metoprolol Succinate [Toprol Xl] 50 mg PO DAILY 12/19/17 Clopidogrel Bisulfate [Plavix -] 75 mg PO DAILY #30 tablet 12/20/17 dc home out pt fu with neuro/cardio Gait: Normal MRI Acute Right Posterior cerebral artery infarct with left inferior quadrantanopsia ON PLAVIX CRESTOR
[2017-12-20] MEDS ORDERED: ACETAMINOPHEN 325 MG TABLET (FP) PO PRN (16:57)
[2017-12-20 20:02] VITALS: BP 150/93; PULSE 76; TEMP 98.1
--- NOTE | 2017-12-20 20:14 | CONSULT ---
Consult - text type - Consultation Consultation Note: NEUROLOGY FOLLOW-UP: Events reviewed and discussed with patient and his at the bedside. Pt offers no new complaints. Patient slept last night on pramipexole without leg pains. Carotid duplex shows moderate, bilateral, non-occlusive plaque without significant hemodynamic changes. CT Angio never performed. Dr. Zavala's consultation is greatly appreciated. [id number] Today's BP's still in the 150/90-100 range (on losartan 100 and metoprolol 50). Exam unchanged: Isolated left inferior quadrantanopsia IMP: 1. S/P right posterior cerebral artery CVA with left inferior quadrantanopsia. 2. Restless limbs syndrome (RLS). SUGGEST: Continue losartan 100 mg (was 50 mg). Increase metoprolol to 100 mg qd Continue clopidogrel 75 mg qd with ASA 81 mg Add Atorvastatin 20 mg q d (repeat chol in 2-3 mos). Continue Pramipexole .25 mg q HS Neuro and cardiology follow-up as out patient in 2-3 weeks. Home BP monitoring. No driving at this time. Thank you very much, Yovani Young MD
== END 2017-12-20 21:11 | disposition home or self-care (01) | DRG 66 ==
LOC: FER 09:12 → J4S 17:30
PROVIDERS: ADMIT Internal Medicine; ATTEND Internal Medicine
DX: I63.531 Cerebral infarction due to unspecified occlusion or stenosis of right posterior cerebral artery (principal); H53.462 Homonymous bilateral field defects, left side; H53.47 Heteronymous bilateral field defects; I10 Essential (primary) hypertension; E78.00 Pure hypercholesterolemia, unspecified; R94.11 Abnormal results of function studies of eye; G25.81 Restless legs syndrome
CPT/HCPCS: 36415; 70450-TC; 70551-TC; 80053; 80061; 82550; 83036; 83721; 84443; 84484; 85025; 90688; 93005; 93306-TC; 93880-TC; 97161-GP; 99283-25; G0008

== ENCOUNTER 2017-12-26 08:11 | Emergency (ER) | payer OTHER, BC ==
[2017-12-26 08:27] VITALS: BMI 31.5
[2017-12-26] MEDS ORDERED: SODIUM CHLORIDE 1,000 ML IV STA (08:48)
--- NOTE | 2017-12-26 08:48 | PDOC ---
History of Present Illness - General Chief Complaint: Psychiatric Stated Complaint: ANXIETY ATTACK Time Seen by Provider: 12/26/17 08:25 History Source: Patient Exam Limitations: No Limitations - History of Present Illness Initial Comments: 57 yo M history anxiety, HTN, recent CVA 1 week ago with L inferior quadrantanopsia presents with "anxiety attack". Patient states he was up all night due to anxiety. Denies cp, SOB, weakness, numbness, headache. He is somnolent on ED evaluation, intermittently falling asleep during assessment. He states he takes cymbalta daily, then takes xanax as needed- took it this morning. Past History - Past Medical History Allergies/Adverse Reactions: Allergies Allergy/AdvReac Type Severity Reaction Status Date / Time No Known Allergies Allergy Verified 12/26/17 08:13 Home Medications: Ambulatory Orders Duloxetine HCl [Cymbalta] 60 mg PO DAILY 10/09/17 Naproxen 500 mg PO BID PRN #20 tablet 10/09/17 Buprenorphine HCl/Naloxone HCl [Zubsolv 8.6-2.1 mg Tablet Sl] 0.25 each SL DAILY 12/19/17 Losartan Potassium [Cozaar -] 50 mg PO DAILY 12/19/17 Metoprolol Succinate [Toprol Xl] 50 mg PO DAILY 12/19/17 Clopidogrel Bisulfate [Plavix -] 75 mg PO DAILY #30 tablet 12/20/17 Rosuvastatin Calcium [Crestor] 5 mg PO DAILY #30 tablet 12/20/17 CVA: Yes (12/2017) COPD: No CHF: No DVT: No HTN: Yes Hypercholesterolemia: Yes Psychiatric Problems: Yes (Anxiety) - Surgical History Orthopedic Surgery: Yes (L spine) - Suicide/Smoking/Psychosocial Hx Smoking History: Never smoked Have you smoked in the past 12 months: No Hx Alcohol Use: No Drug/Substance Use Hx: No Substance Use Type: None Review of Systems - Review of Systems Able to Perform ROS?: Yes Comments:: GENERAL/CONSTITUTIONAL: No fever or chills. No weakness. HEAD, EYES, EARS, NOSE AND THROAT: No change in vision. No ear pain or discharge. No sore throat. CARDIOVASCULAR: No chest pain or shortness of breath. RESPIRATORY: No cough, wheezing, or hemoptysis. GASTROINTESTINAL: No nausea, vomiting, diarrhea or constipation. GENITOURINARY: No dysuria, frequency, or change in urination. MUSCULOSKELETAL: No joint or muscle swelling or pain. No neck or back pain. SKIN: No rash NEUROLOGIC: No headache, vertigo, loss of consciousness, or change in strength/ sensation. ENDOCRINE: No increased thirst. No abnormal weight change. HEMATOLOGIC/LYMPHATIC: No anemia, easy bleeding, or history of blood clots. ALLERGIC/IMMUNOLOGIC: No hives or skin allergy. *Physical Exam - Vital Signs Last Vital Signs Temp Pulse Resp BP Pulse Ox 98.9 F 87 18 131/77 96 12/26/17 08:13 12/26/17 08:13 12/26/17 08:13 12/26/17 08:13 12/26/17 08:13 - Physical Exam Comments: GENERAL: Awake, alert, and fully oriented, in no acute distress HEAD: No signs of trauma EYES: PERRLA, EOMI, sclera anicteric, conjunctiva clear ENT: Auricles normal inspection, hearing grossly normal, nares patent, oropharynx clear without exudates. Moist mucosa NECK: Normal ROM, supple, no lymphadenopathy, JVD, or masses LUNGS: Breath sounds equal, clear to auscultation bilaterally. No wheezes, and no crackles HEART: Regular rate and rhythm, normal S1 and S2, no murmurs, rubs or gallops ABDOMEN: Soft, nontender, normoactive bowel sounds. No guarding, no rebound. No masses EXTREMITIES: Normal range of motion, no edema. No clubbing or cyanosis. No cords, erythema, or tenderness NEUROLOGICAL: Cranial nerves II through XII grossly intact. Normal speech. Motor and sensation intact. Gait unsteady. SKIN: Warm, Dry, normal turgor, no rashes or lesions noted. Heart Score/ECG Review - ECG Impressions Comment:: EKG read 09:15- NSR 89 bpm, no acute ST/T changes ED Treatment Course - LABORATORY CBC & Chemistry Diagram: 12/26/17 09:00 12/26/17 09:00 Medical Decision Making - Medical Decision Making 12/26/17 08:57 Pt with somnolence on evaluation, unsteady gait. While this may be due to lack of sleep (intermittently falling asleep during evaluation), will obtain CTH and AMS workup in light of recent CVA. 12/26/17 10:44 Multiple reassessments. Pt sleeping but awakens to voice. 12/26/17 12:35 No significant findings on labs, CTH consistent with recent history of CVA. Patient awake, alert, well-appearing. Stable for DC home with outpatient PMD f/ u. *DC/Admit/Observation/Transfer Diagnosis at time of Disposition: Sleep difficulties - Discharge Dispostion Disposition: HOME Condition at time of disposition: Stable Decision to Admit order: No - Referrals Referrals: Hudson Shepard MD [Primary Care Provider] - - Patient Instructions Printed Discharge Instructions: Having Trouble Sleeping?, DI for Insomnia - Post Discharge Activity
[2017-12-26 09:46] LABS: ALK PHOS 125 U/L (32-92); ANION GAP 10 MMOL/L (8-16); BILIRUBIN,TOTAL 0.2 mg/dl (0.2-1.0); CALCIUM 8.8 mg/dl (8.4-10.2); CHLORIDE 101 mmol/L (98-107); CO2 25 mmol/L (22-28); GLUCOSE,RANDOM 115 mg/dl (74-106); POTASSIUM 4.3 mmol/L (3.5-5.1); SGOT/AST 22 U/L (10-42); SGPT/ALT 20 U/L (10-40); SODIUM 136 mmol/L (136-145); TOT PROT 6.5 g/dl (6.4-8.3)
[2017-12-26 10:00] LABS: BLOOD UREA NITROGEN 12 mg/dl (7-18); CREATININE 0.9 mg/dl (0.6-1.3)
[2017-12-26 10:16] LABS: BASO % 0.4 % (0-2.0); EOS % 1.6 % (0-4.5); HEMATOCRIT 36.9 % (35.4-49); HEMOGLOBIN 12.9 GM/dl (11.7-16.9); LYMPH % 8.5 % (8-40); MCH 30.3 pg (25.7-33.7); MCHC 34.8 g/dl (32.0-35.9); MEAN PLT VOLUME 7.4 fl (7.5-11.1); MONO % 5.7 % (3.8-10.2); NEUT % 83.8 % (42.8-82.8); PLATELET COUNT 275 K/MM3 (134-434); RBC 4.24 M/mm3 (4.00-5.60); RDW 12.2 % (11.9-15.9); WHITE BLOOD COUNT 13.9 K/mm3 (4.0-10.8)
[2017-12-26 12:13] LABS: URINE APPEARANCE Clear; URINE BILIRUBIN Negative (NEGATIVE); URINE COLOR Yellow; URINE GLUCOSE (UA) Negative (NEGATIVE); URINE KETONE Negative (NEGATIVE); URINE LEUK ESTERASE Negative (NEGATIVE); URINE NITRITE Negative (NEGATIVE); URINE PROTEIN Negative (NEGATIVE); URINE UROBILINOGEN 0.2 (0.2-1.0)
[2017-12-26 12:32] VITALS: BP 150/82; PULSE 92; TEMP 98.8
[2017-12-26 14:24] LABS: COCAINE, UR NEGATIVE ng/ml (CUTOFF=300); METHADONE, UR NEGATIVE ng/ml (CUTOFF=300); PHENCYCLIDINE,URINE NEGATIVE ng/ml (CUTOFF=25); URINE AMPHETAMINES NEGATIVE ng/ml (CUTOFF=500); URINE BARBITURATES NEGATIVE ng/ml (CUTOFF=200); URINE BENZODIAZEPINES NEGATIVE ng/ml (CUTOFF=200)
[2017-12-26 14:30] LABS: OPIATES, URI POSITIVE ng/ml (CUTOFF=300)
--- NOTE | 2017-12-27 12:58 | EKG ---
Test Reason : Blood Pressure : / mmHG Vent. Rate : 089 BPM Atrial Rate : 089 BPM P-R Int : 170 ms QRS Dur : 100 ms QT Int : 406 ms P-R-T Axes : 025 026 036 degrees QTc Int : 493 ms NORMAL SINUS RHYTHM CANNOT RULE OUT ANTERIOR INFARCT (CITED ON OR BEFORE 19-DEC-2017) ABNORMAL ECG Confirmed by MD ROSALINO, HUMPHREY ([id number]) on 12/27/2017 12:58:19 PM Referred By: JACKIE Confirmed By:HUMPHREY JERRY MD
== END 2017-12-26 12:36 | disposition home or self-care (01) ==
LOC: SUPCPDRO 08:11 → FER 08:11
PROC: 3E0337Z Introduction of Electrolytic and Water Balance Substance into Peripheral Vein, Percutaneous Approach (ICD-10-PCS; principal; 2017-12-26)
DX: G47.9 Sleep disorder, unspecified (principal); I10 Essential (primary) hypertension; E78.00 Pure hypercholesterolemia, unspecified; Z86.73 Personal history of transient ischemic attack (TIA), and cerebral infarction without residual deficits
CPT/HCPCS: 36415; 70450-TC; 71045-TC-FY; 80053; 80307; 81003; 82550; 82553; 84443; 84484; 85025; 93005; 99284-25; J7030

== ENCOUNTER 2018-03-09 09:33 | Day surgery (SDC) | payer OTHER, BC ==
[2018-03-09 10:21] VITALS: BMI 32.1
[2018-03-09] MEDS ORDERED: LIDOCAINE VISCOUS 2% ORAL/TOP 20 ML UNIT-DOSE CUP ONE (12:01)
[2018-03-09 12:45] VITALS: TEMP 97.6
--- NOTE | 2018-03-09 12:50 | ECHO ---
Name: SALLY, JOHN Exam:Transesophageal Echocardiogram Study Date: 03/09/2018 12:10 PM Age: 57 yrs Reason For Study: R/O SOURCE OF EMBOLI Height: 71 in Weight: 230 lb BSA: 2.2 m2 Procedure: A 2D transesophageal echocardiogram with Doppler and color flow Doppler was performed. Informed conse nt for Transesophageal Echocardiogram, and use of a contrast agent as needed, was obtained prior to the proc edure. The patient was brought to the endoscopy suite in a fasting state. An intravenous line was placed. A topical anesthetic agent was used for oropharangeal anesthesia. A bite block was inserted. IV concious sedati on was administered using propafol. A multifrequency, multiplane transesopheageal echocardiographic endoscop e was inserted and manipulated in the standard fashion to achieve multiplane views. The usual views were ob tained; basal, mid-esophageal, transgastric and aortic views. The patient's vital signs, including blood pres sure, heart rate, pulse oximetry and cardiac rhythm were monitored throughout the procedure and remained st able. The patient tolerated the procedure well without evidence of orophangeal or esophageal trauma. There were no complications. The patient was in normal sinus rhythm during the exam. Left Ventricle The left ventricle is normal in size. Left ventricular systolic function is normal. No regional wall motion abnormalities noted. Atria The left atrial size is normal. No thrombus is detected in the left atrial appendage. No left atrial mass or thrombus visualized. The interatrial septum is intact with no evidence for an atrial septal defect. I njection of contrast documented no interatrial shunt. Mitral Valve The mitral valve is normal in structure and function. There is mild mitral regurgitation. Tricuspid Valve The tricuspid valve is normal in structure and function. There is mild tricuspid regurgitation. Aortic Valve The aortic valve is trileaflet. The aortic valve is normal in structure and function. No aortic regur gitation is present. Pulmonic Valve The pulmonic valve is not well visualized. Great Vessels No significant atherosclerotic plaque in thoracic aorta or aortic arch. Pericardium/Pluera There is no pericardial effusion. Interpretation Summary The left ventricle is normal in size. Left ventricular systolic function is normal. No regional wall motion abnormalities noted. The left atrial size is normal. No thrombus is detected in the left atrial appendage. No left atrial mass or thrombus visualized. The interatrial septum is intact with no evidence for an atrial septal defect. Injection of contrast documented no interatrial shunt. There is mild mitral regurgitation. There is mild tricuspid regurgitation. The aortic valve is trileaflet. The aortic valve is normal in structure and function. No aortic regurgitation is present. No significant atherosclerotic plaque in thoracic aorta or aortic arch There is no pericardial effusion. Ramon Zavala MD 03/09/2018 12:49 PM
[2018-03-09 14:47] VITALS: BP 110/59; PULSE 62
== END 2018-03-09 14:40 | disposition home or self-care (01) ==
LOC: JASU-SURG 09:33
PROVIDERS: ATTEND Internal Medicine Cardiovascular Disease
PROC: B246ZZ4 Ultrasonography of Right and Left Heart, Transesophageal (ICD-10-PCS; principal; 2018-03-09 10:30)
DX: I63.89 Other cerebral infarction (principal); I10 Essential (primary) hypertension; E66.01 Morbid (severe) obesity due to excess calories
CPT/HCPCS: 93312; 93325

== ENCOUNTER 2018-11-13 19:45 | Emergency (ER) | payer OTHER, BC ==
[2018-11-13 20:16] VITALS: TEMP 99.1; BMI 28.5
[2018-11-13] MEDS ORDERED: SODIUM CHLORIDE 0.9% 500 ML INFUS.BAG IV ONE ×2 (20:24→21:44)
--- NOTE | 2018-11-13 20:44 | PDOC ---
Documentation entered by Zakiya King SCRIBE, acting as scribe for Chloé Hodge MD. Chloé Hodge MD: This documentation has been prepared by the Fernando wood Aiswarya, SCRIBE, under my direction and personally reviewed by me in its entirety. I confirm that the documentation accurately reflects all work, treatment, procedures, and medical decision making performed by me. History of Present Illness - General Chief Complaint: Blood Pressure Problem Stated Complaint: LOW BLOOD PRESSURE Time Seen by Provider: 11/13/18 20:12 History Source: Patient Exam Limitations: No Limitations - History of Present Illness Initial Comments: 11/13/18 20:33 The patient is a 58 year old male, with a significant PMH of CVA, HTN, and HLD , who presents to the emergency department with generalized weakness that began a week ago. The patient states he endorses associated symptoms of lightheadedness, decreased sleep, decreased appetite and lethargy. Patient states BP was low today and his neighbor who is a nurse told him to report to the ER for further evaluation. The patient denies chest pain, shortness of breath and headache. Denies fever, chills, nausea, vomit, diarrhea and constipation.Denies dysuria, frequency, urgency and hematuria. Allergies: NKDA Past surgical history: left spine injury Social history: None reported PCP: None reported Past History - Past Medical History Allergies/Adverse Reactions: Allergies Allergy/AdvReac Type Severity Reaction Status Date / Time No Known Allergies Allergy Verified 12/26/17 08:13 Home Medications: Ambulatory Orders Duloxetine HCl [Cymbalta] 60 mg PO DAILY 10/09/17 Azilsartan Med/Chlorthalidone [Edarbyclor 40-25 mg Tablet] 1 each PO DAILY 03/09 Nebivolol HCl [Bystolic] 20 mg PO HS 03/09/18 [place]-3 Fatty Acids [[place]-3] 3,000 mg PO DAILY 03/09/18 Alprazolam [Xanax] 0.25 mg PO DAILY PRN 11/13/18 Aspirin Coated [Ecotrin -] 81 mg PO DAILY 11/13/18 Clopidogrel Bisulfate [Plavix -] 75 mg PO HS 11/13/18 Oxymetazoline HCl [Afrin] 1 spray NS BID 11/13/18 Rosuvastatin Calcium [Crestor] 5 mg PO HS 11/13/18 Tablet Compound Base No.230 [Subsolv Rdt] 500 gm MC DAILY 11/13/18 Anemia: No Asthma: No Cancer: No Cardiac Disorders: No CVA: Yes (12/2017) COPD: No CHF: No DVT: No Dementia: No Diabetes: No GI Disorders: No Disorders: No HTN: Yes Hypercholesterolemia: Yes Liver Disease: No Psychiatric Problems: Yes (Anxiety) Seizures: No Thyroid Disease: No - Surgical History Abdominal Surgery: No Appendectomy: No Cardiac Surgery: No Cholecystectomy: No Lung Surgery: No Neurologic Surgery: No Orthopedic Surgery: Yes (L spine) - Suicide/Smoking/Psychosocial Hx Smoking History: Never smoked Have you smoked in the past 12 months: No Hx Alcohol Use: No Drug/Substance Use Hx: No Substance Use Type: None Hx Substance Use Treatment: No Review of Systems - Review of Systems Able to Perform ROS?: Yes Comments:: 11/13/18 20:34 GENERAL/CONSTITUTIONAL: No fever or chills. No weakness. HEAD, EYES, EARS, NOSE AND THROAT: No change in vision. No ear pain or discharge. No sore throat. CARDIOVASCULAR: No chest pain or shortness of breath. RESPIRATORY: No cough, wheezing, or hemoptysis. GASTROINTESTINAL: No nausea, vomiting, diarrhea or constipation. GENITOURINARY: No dysuria, frequency, or change in urination. MUSCULOSKELETAL: No joint or muscle swelling or pain. No neck or back pain. SKIN: No rash NEUROLOGIC: No headache, vertigo, loss of consciousness, or change in strength/ sensation. ENDOCRINE: No increased thirst. No abnormal weight change. HEMATOLOGIC/LYMPHATIC: No anemia, easy bleeding, or history of blood clots. ALLERGIC/IMMUNOLOGIC: No hives or skin allergy. *Physical Exam - Vital Signs Last Vital Signs Temp Pulse Resp BP Pulse Ox 99.1 F 76 16 104/64 96 11/13/18 20:03 11/13/18 20:03 11/13/18 20:03 11/13/18 20:03 11/13/18 20:03 - Physical Exam Comments: 11/13/18 20:34 GENERAL: Awake, alert, and fully oriented, in no acute distress HEAD: No signs of trauma EYES: PERRLA, EOMI, sclera anicteric, conjunctiva clear ENT: Auricles normal inspection, hearing grossly normal, nares patent, oropharynx clear without exudates. Moist mucosa NECK: Normal ROM, supple, no lymphadenopathy, JVD, or masses LUNGS: Breath sounds equal, clear to auscultation bilaterally. No wheezes, and no crackles HEART: Regular rate and rhythm, normal S1 and S2, no murmurs, rubs or gallops ABDOMEN: Soft, nontender, normoactive bowel sounds. No guarding, no rebound. No masses EXTREMITIES: Normal range of motion, no edema. No clubbing or cyanosis. No cords, erythema, or tenderness NEUROLOGICAL: Cranial nerves II through XII grossly intact. Normal speech, normal gait SKIN: Warm, Dry, normal turgor, no rashes or lesions noted. ED Treatment Course - LABORATORY CBC & Chemistry Diagram: 11/13/18 20:59 11/13/18 20:59 - RADIOLOGY Radiology Studies Ordered: Category Date Time Status CHEST X-RAY PORTABLE* [RAD] Stat Radiology 11/13/18 20:24 Ordered Medical Decision Making - Medical Decision Making 11/13/18 20:39 Pt presents to the ED complaining of generalized malaise, excessive drowsiness and generalized weakness for several weeks, worse over the last week. presents today because of a low BP reading at home. Differential includes infection, less likely renal failure, ACS. Will check labs and EKG, give IV hydration and reassess. 11/13/18 23:23 pt feels improved, and was able to ambulate to the bathroom with no difficulty. Labs show evidence of dehydration, with elevated BUN and Cr. PAtinet was hydrated with 2 L NS in the ED. Systolic BP has remained stable in the ED. WBC count is slightly elevated, but CXR and UA show no evidence of infection. Will discharge home with instructions to call his PMD tomorrow to arrange follow up and to return immediately for worsening symptoms. *DC/Admit/Observation/Transfer Diagnosis at time of Disposition: Dehydration - Discharge Dispostion Disposition: HOME Condition at time of disposition: Good Decision to Admit order: No - Referrals Referrals: Ha Cordero MD [Primary Care Provider] - - Patient Instructions Printed Discharge Instructions: DI for Dehydration -- Adult Additional Instructions: you came to the ED because you were feeling weak and tired. This may have been caused by dehydration. You should remember to drink plenty of water and to eat regular meals. You should call your primary care doctor tomorrow for follow up. Return to the ED for severe pain, fever, severe weakness unable to walk, severe nausea and vomiting, other new or worsening symptoms. - Post Discharge Activity
[2018-11-13 21:26] LABS: BASO % 0.5 % (0-2.0); EOS % 1.7 % (0-4.5); HEMATOCRIT 32.1 % (35.4-49); HEMOGLOBIN 10.9 GM/dl (11.7-16.9); LYMPH % 16.8 % (8-40); MCH 29.8 pg (25.7-33.7); MEAN CELL VOLUME 87.8 fl (80-96); MEAN PLT VOLUME 7.1 fl (7.5-11.1); MONO % 11.1 % (3.8-10.2); NEUT % 69.9 % (42.8-82.8); PLATELET COUNT 442 K/MM3 (134-434); RBC 3.65 M/mm3 (4.00-5.60); RDW 11.8 % (11.9-15.9); WHITE BLOOD COUNT 13.3 K/mm3 (4.0-10.8)
[2018-11-13 21:31] LABS: ALBUMIN 4.2 g/dl (3.4-5.0); BILIRUBIN,TOTAL 0.5 mg/dl (0.2-1); CALCIUM 9.8 mg/dl (8.5-10); CREATININE 1.4 mg/dl (0.55-1.3)
[2018-11-13 23:18] VITALS: BP 119/74; PULSE 64
--- NOTE | 2018-11-14 11:18 | EKG ---
Test Reason : Blood Pressure : / mmHG Vent. Rate : 065 BPM Atrial Rate : 065 BPM P-R Int : 188 ms QRS Dur : 090 ms QT Int : 432 ms P-R-T Axes : 022 032 039 degrees QTc Int : 449 ms NORMAL SINUS RHYTHM POSSIBLE ANTERIOR INFARCT (CITED ON OR BEFORE 19-DEC-2017) ABNORMAL ECG WHEN COMPARED WITH ECG OF 26-DEC-2017 09:14, NO SIGNIFICANT CHANGE WAS FOUND Confirmed by Frank Weiss MD ([id number]) on 11/14/2018 11:18:25 AM Referred By: Confirmed By:Frank Weiss MD
== END 2018-11-13 23:41 | disposition home or self-care (01) ==
LOC: FER 19:45
PROC: 3E0337Z Introduction of Electrolytic and Water Balance Substance into Peripheral Vein, Percutaneous Approach (ICD-10-PCS; principal; 2018-11-13)
DX: E86.0 Dehydration (principal)
CPT/HCPCS: 36415; 71045-TC-FY; 80053; 81003; 82550; 84484; 85025; 93005; 99283-25

== ENCOUNTER 2019-10-12 01:10 | Inpatient (IN) | payer OTHER, BC ==
[2019-10-12 01:46] LABS: EOS % 3.3 % (0-4.5); HEMATOCRIT 36.5 % (35.4-49); HEMOGLOBIN 12.1 GM/dL (11.7-16.9); LYMPH % 23.8 % (8-40); MCH 28.8 pg (25.7-33.7); MCHC 33.1 g/dl (32.0-35.9); MEAN CELL VOLUME 87.1 fl (80-96); MEAN PLT VOLUME 6.4 fl (7.5-11.1); MONO % 10.6 % (3.8-10.2); NEUT % 61.3 % (42.8-82.8); PLATELET COUNT 349 K/MM3 (134-434); RBC 4.19 M/mm3 (4.00-5.60); RDW 14.2 % (11.9-15.9); WHITE BLOOD COUNT 11.6 K/mm3 (4.0-10.0)
[2019-10-12 01:57] LABS: PROTHROMBIN TIME (PATIENT) 11.8 SEC (9.7-13.0)
[2019-10-12 02:00] LABS: ACTIVATED PTT 26.8 SECONDS (25.2-36.5)
--- NOTE | 2019-10-12 02:01 | PDOC ---
History of Present Illness - General Chief Complaint: Altered Mental Status Stated Complaint: EVALUATION Time Seen by Provider: 10/12/19 01:59 tPA Exclusion checklist 3-4.5h - Time Elapsed Date last known well: 10/11/19 Time last known well: 20:00 Elaspsed time: 9 Day(s) and 0 Hour(s) and 14 Minutes - Thrombolytic Therapy Candidate Is patient eligible for thrombolytic therapy: No - Ineligibility reason(s) Reasons No tPA given: Outside of window - delayed arrival NIH Stroke Scale - Last Known Well Date/Time & Onset Date Last Known Well: 10/11/19 Time Last Known Well: 20:00 - Initial Evaluation Level of consciousness: Alert Ask patient the month and their age: Answers one correctly Ask patient to open & close eyes; make fist and let go: Obeys both correctly Best gaze (horizontal eye movement): Normal Visual field testing: No visual field loss (No new visual field loss) Facial paresis (Show teeth/raise eyebrows/close eyes tight): Normal symmetrical movement Motor Function: Left Arm: Normal Motor Function: Right Arm: Normal (extends arm 90 (or 45) degrees for 10 seconds without drift Motor Function: Left Leg: Normal (extends leg 30 degrees for 5 seconds without drift) Motor Function: Right Leg: Normal (extends leg 30 degrees for 5 seconds without drift) Limb Ataxia: Present in two limbs Sensory(Use pinprick test arms,legs,trunk,face/side to side): Normal Best language (Describe picture, name items, read sentences): Mild to moderate aphasia Dysarthria (read several words): Normal articulation Extinction and Inattention: No abnormality - Total Score NIH Stroke Scale Score: 4 Past History - Medical History Allergies/Adverse Reactions: Allergies Allergy/AdvReac Type Severity Reaction Status Date / Time No Known Allergies Allergy Verified 10/12/19 01:26 Home Medications: Ambulatory Orders Duloxetine HCl [Cymbalta] 60 mg PO DAILY 10/09/17 Azilsartan Med/Chlorthalidone [Edarbyclor 40-25 mg Tablet] 1 each PO DAILY 03/09/18 Nebivolol HCl [Bystolic] 20 mg PO HS 03/09/18 [place]-3 Fatty Acids [[place]-3] 3,000 mg PO DAILY 03/09/18 Alprazolam [Xanax] 0.25 mg PO DAILY PRN 11/13/18 Aspirin Coated [Ecotrin -] 81 mg PO DAILY 11/13/18 Oxymetazoline HCl [Afrin] 1 spray NS BID 11/13/18 Rosuvastatin Calcium [Crestor] 5 mg PO HS 11/13/18 Tablet Compound Base No.230 [Subsolv Rdt] 500 gm MC DAILY 11/13/18 Duloxetine HCl [Cymbalta -] 30 mg PO DAILY 30 Days #30 capsule. 10/12/19 Losartan Potassium [Cozaar -] 50 mg PO DAILY tablet 10/12/19 Anemia: No Asthma: No Cancer: No Cardiac Disorders: No CVA: Yes (12/2017) COPD: No CHF: No DVT: No Dementia: No Diabetes: No GI Disorders: No Disorders: No HTN: Yes Hypercholesterolemia: Yes Liver Disease: No Psychiatric Problems: Yes (Anxiety) Seizures: No Thyroid Disease: No - Surgical History Abdominal Surgery: No Appendectomy: No Cardiac Surgery: No Cholecystectomy: No Lung Surgery: No Neurologic Surgery: No Orthopedic Surgery: Yes (L spine) - Psycho-Social/Smoking History Smoking History: Unknown if ever smoked Have you smoked in the past 12 months: No Information on smoking cessation initiated: No - Substance Abuse Hx (Audit-C & DAST Scrn) How often the patient has a drink containing alcohol: 2-4 times / month Number of drinks the patient has on a typical day: 1 or 2 How often the patient has six or more drinks on one occasion: Never Score: In Men: 4 or > Positive; In Women: 3 or > Positive: 2 Screen Result (Pos requires Nsg. Audit-10AR): Negative In the last yr the pt used illegal drug/Rx for NonMed reason: Yes Score: Yes response is considered Positive: 1 Screen Result (Positive result requires Nsg. DAST-10): Positive *Physical Exam - Vital Signs Last Vital Signs Temp Pulse Resp BP Pulse Ox 98.1 F 94 H 14 119/67 95 10/12/19 01:26 10/12/19 01:26 10/12/19 01:26 10/12/19 01:26 10/12/19 01:26 ED Treatment Course - LABORATORY CBC & Chemistry Diagram: 10/12/19 01:31 10/12/19 01:31 - ADDITIONAL ORDERS Additional order review: Laboratory Results 10/12/19 01:31 PT with INR 11.80 INR 1.00 10/12/19 01:31 RBC 4.19 MCV 87.1 MCHC 33.1 RDW 14.2 MPV 6.4 L Neutrophils % 61.3 Lymphocytes % 23.8 Monocytes % 10.6 H Eosinophils % 3.3 Basophils % 1.0 Medical Decision Making - Medical Decision Making 10/12/19 02:00 HPI: 59yo M hx HTN, HLD, prior CVA (12/19/2017, residual L inferior quadrantanopsia), and prior opiate abuse brought in from home by for erratic behaviour, unste dillon gait, jerky movements, itching of skin causing skin tears, and confusion x5 hours. Pt denies all sx. Hx per . LKN [id number] during dinner tonight. had dinner with pt then pt went out for ice cream at 1999 and returned at 2100 confused and erratic, worsening over 5 hours. Pt in [employer] prior to 1999. endorses itchiness x years. Endorses hx similar sx/episodes intermittent since prior CVA but much less severe and approx once every 2-3mo. Episodes involve both confusion and erratic/jerky movements. 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 Pt states he went out to ice cream and met his friend Eleuterio BaxterCatherine states he was giving him pot which pt states he does not like and has only used twice in his life, last 2 years ago. Pt denies smoking, alcohol, drugs. Pt's agrees no smoking or drugs but endorses occasional (1 glass wine per month) alcohol use. is concerned due to prior opiate abuse s/p surgery 2yrs ago, been on zubsolv for 2 years without relapse. concerned due to rx for opiates after R hip surgery 6 weeks ago. States he has also been using advil, tylenol, and motrin. R hip surgery 6 weeks ago, blood thinners stopped 2 weeks prior to surgery, covid test prior to surgery negative, no covid sx since. Denies FHx of neuromuscular disorders or similar sx, endorses mother Alzheimer's. Denies trauma, head injury, vision changes, numbness/tingling, focal weakness, abdominal pain, N/V, F/C, CP, SOB, dysuria, urinary retention or issues. Denies SI, HI, AVH, hx psychiatric breaks, fhx psychiatric disorders. Meds: Zubsolv Cymbalta Edarbi Crestor Baby aspirin Xanac Adderall (rx but believes never used) Discontinued plavix 2 weeks prior to hip surgery 08/20/19 PCP - Ha [facility]order[facility] - can't remember but was affiliated here ([facility] per chart 2018) Cardio - [facility] ROS: Constitutional: Positive for itchiness. Negative for chills, fever, fatigue, diaphoresis. HENT: Negative for sore throat, rhinorrhea, congestion. Eyes: Positive for chronic L ifnerior quadrantanopsia. Negative for visual change. Respiratory: Negative for shortness of breath, cough, and wheezing. Cardiovascular: Negative for chest pain, palpitations, and leg swelling. Gastrointestinal: Negative for abdominal pain, blood in stool, constipation, diarrhea, nausea, and vomiting. Genitourinary: Negative for dysuria, flank pain, and hematuria. Musculoskeletal: Positive for erratic movements. Negative for myalgias, back pain, and neck pain. Skin: Positive for skin tears. Negative for rash. Neurological: Positive for unsteady gait, confusion, erratic movements. Negative for light-headedness, dizziness, vertigo, syncope, weakness, numbness and headaches. Psychiatric/Behavioral: Positive for erratic behaviour and confusion. Negative for SI/HI/AVH.. PE: Gen: Alert, NAD, comfortable-appearing, jumbled speech HEENT: PERRL, EOMI, dry MM, NCAT. No conjunctival pallor. Sclera are non- icteric. CV: Regular rate and rhythm. No murmurs, rubs, or gallops. PULM: No resp distress. CTAB, no wheezes, rales, or rhonchi. ABD: soft, NT/ND, no rebound tenderness or guarding, no CVA tenderness. BACK: No TTP of c/t/l-spine. No step-offs or deformities. MSK: No bony deformities. 2+ pulses in all extremities. NEURO: Jerky movements. Alert, oriented to name only. PERRL. L inferior quadrantanopsia, otherwise CN 2-12 intact. 5/5 strength in all extremities. Sensation to light touch intact in all extremities. No pronator drift. No dysmetria. No dysdiadochokinesia. No abnormal nystagmus. Unsteady gait. EXTREMITIES: Jerky erratic movements. No cyanosis. No clubbing. No edema. No calf tenderness. PSYCH: Normal mood and thought pattern. SKIN: Skin tears to occiput, R posterior shoulder, midline upper back, LLE. Warm and dry. Normal capillary refill. No rashes. No jaundice. MDM: 59yo M hx HTN, HLD, prior CVA (2018, residual L inferior quadrantanopsia), and prior opiate abuse brought in from home by for erratic behaviour, unsteady gait, jerky movements, itching of skin causing skin tears, and confusion x5 hours; similar sx intermittent x 2 years since prior CVA approx 1x c/1-3 months but never as bad as this. Tachycardic, intermittently hypoxic between 84 and 100%, normotensive, normal RR, afebrile, confused, making erratic odd movements, L inferior qudrantanopsia, unsteady gait, no focal strength or sensory deficits. Ddx: stroke, ICH, toxidrome, metabolic derangement, thyroid pathology, malignancy, hepatic encephalopathy, anemia, ACS/OR, arrhythmia, neurological condition, neuromuscular disorder, dementia (Lewy body, Alzhemier's, etc) -EKG -CXR -CTH -Labs including VBG, acetaminophen, alcohol, salicylate, Mg, Phos, ammonia, drug screen -COVID -Admit Call from radiologist for CTH read - old R [employer]PER infarct, no acute pathology 10/12/19 04:29 Labs reviewed: notable for TAI, hyperphosphatemia, WBC 11.6, CK 452, ammonia 40 EKG reviewed: NSR, 97bpm, normal axis, normal intervals, no e/o acute ischemia CXR reviewed: no acute pathology POCUS kidneys and bladder: mild hydronephrosis b/l, bladder 151cc, pt unable to urinate -Straight cath Pt able to articulate more clearly and describe evening but still unsure of why he's here and still making erratic and bizarre movements. Admit for AMS, hyperphosphatemia, TAI, jerky movements, urinary retention 10/12/19 05:17 Signed out to COURTNEY Moreno 10/12/19 06:14 CTAP noncontrast read: nonobstructing L kidney stones, no definite e/o acute pathology UA negative for UTI Pt continues to question why he's here and forgets conversations we've had 10 minutes prior. 10/12/19 06:39 Utox positive for benzo (pt taking xanax), amphetamines (probably pt's adderall), and MDMA (possible false positive due to psychiatric meds?) Discharge - Discharge Information Problems reviewed: Yes Clinical Impression/Diagnosis: AMS (altered mental status), Jerky body movements, TAI (acute kidney injury), Hyperphosphatemia Condition: Stable Disposition: HOME - Admission Yes - Follow up/Referral - Patient Discharge Instructions - Post Discharge Activity
[2019-10-12 02:06] LABS: ALK PHOS 145 U/L (45-117); ANION GAP 7 MMOL/L (8-16); BILIRUBIN,TOTAL 0.3 mg/dL (0.2-1); BLOOD UREA NITROGEN 21.8 mg/dL (7-18); CALCIUM 9.2 mg/dL (8.5-10.1); CHLORIDE 104 mmol/L (98-107); CO2 29 mmol/L (21-32); CREATININE 1.8 mg/dL (0.55-1.3); GLUCOSE,RANDOM 111 mg/dL (74-106); POTASSIUM 4.1 mmol/L (3.5-5.1); SGOT/AST 28 U/L (15-37); SGPT/ALT 30 U/L (13-61); SODIUM 140 mmol/L (136-145); TOT PROT 7.3 g/dl (6.4-8.2)
[2019-10-12] MEDS ORDERED: SODIUM CHLORIDE 0.9% 500 ML INFUS.BAG IV ONE (02:09)
[2019-10-12 02:25] LABS: VENOUS BASE EXCESS 2.5 mmol/L (-2-2); VENOUS PCO2 65.8 mmHg (38-52); VENOUS PH 7.288 (7.310-7.410)
[2019-10-12 02:58] LABS: MAGNESIUM 2.2 mg/dL (1.8-2.4); PHOSPHOROUS 7.6 mg/dL (2.5-4.9)
--- NOTE | 2019-10-12 03:36 | PDOC ---
Attending Attestation - Resident Resident Name: GriceldaOlga - ED Attending Attestation I have performed the following: I have examined & evaluated the patient, The case was reviewed & discussed with the resident, I agree w/resident's findings & plan, Exceptions are as noted - HPI HPI: 10/18/19 20:29 See resident HPI - Physicial Exam PE: 10/18/19 20:29 Agree with documented exam - Medical Decision Making 10/18/19 20:30 59M pmh of HTN, HLD, CVA with residual Left lower anopsia, former opiate abuseanxiety here with acute change in mental status, last seen in usual state of health after dinner time around 7pm. Pt returned home from "getting ice cream" in an acutely altered state. Poor historian cva? metabolic derangment? tox exposure? intentional ingestion? f/u labs, ct head, tox screen dispo per clinical course CT only with old lesions consistent with residual deficit TAI, elevated ammonia, positive tox screen admit for tx/observation Discharge - Discharge Information Problems reviewed: Yes Clinical Impression/Diagnosis: AMS (altered mental status), Jerky body movements, TAI (acute kidney injury), Hyperphosphatemia Condition: Stable Disposition: HOME - Follow up/Referral - Patient Discharge Instructions - Post Discharge Activity
[2019-10-12] MEDS ORDERED: LIDOCAINE HCL 2% JELLY 10 ML CARTRIDGE UR ONE (05:01)
[2019-10-12] MEDS ORDERED: LIDOCAINE HCL 2% JELLY 10 ML CARTRIDGE ONE (05:03)
[2019-10-12 05:37] LABS: URINE APPEARANCE CLOUDY; URINE BILIRUBIN NEGATIVE (NEGATIVE); URINE COLOR YELLOW; URINE GLUCOSE (UA) NEGATIVE (NEGATIVE); URINE KETONE NEGATIVE (NEGATIVE); URINE LEUK ESTERASE NEGATIVE (NEGATIVE); URINE NITRITE NEGATIVE (NEGATIVE); URINE PROTEIN TRACE (NEGATIVE); URINE UROBILINOGEN 0.2 mg/dL (0.2-1.0)
--- NOTE | 2019-10-12 05:39 | HP ---
CHIEF COMPLAINT: AMS, Unsteady Gait PCP: Ha Cordero HISTORY OF PRESENT ILLNESS: This is a 59 y/o male who presents to the ED for AMS, unsteady gait. Per the ED records: x per . LKN [id number] during dinner tonight. had dinner with pt then pt went out for ice cream at 1999 and returned at 2100 confused and erratic, worsening over 5 hours. Patient states he went out to ice cream and met his friend Eleuterio ?Kullopos states he was giving him pot which pt states he does not like and has only used twice in his life, last 2 years ago. Pt denies smoking, alcohol, drugs. Pt's agrees no smoking or drugs but endorses occasional (1 glass wine per month) alcohol use. is concerned due to prior opiate abuse s/p surgery 2yrs ago, been on zubsolv for 2 years without relapse. concerned due to rx for opiates after R hip surgery 6 weeks ago. States he has also been using advil, tylenol, and m otrin. R hip surgery 6 weeks ago, blood thinners stopped 2 weeks prior to surgery, covid test prior to surgery negative, no covid sx since. Denies trauma, head injury, vision changes, numbness/tingling, focal weakness, abdominal pain, N/V, F/C, CP, SOB, dysuria, urinary retention or issues. Denies SI, HI, AVH, hx psychiatric breaks, fhx psychiatric disorders. ER course was notable for: (1) Head CT- no evidence of acute pathology (2) CTAP- nonobstructing left renal stones. no definite evidence of acute pathology (3) Ammonia 40.2 (4) BUN 21.8, Cr 1.8 (5) UDT- +amphetamines, MDMA, Benzodiazepines Recent Travel: None PAST MEDICAL HISTORY: HTN HLD CVA (2018) Opiate Abuse Cocaine Abuse (per pt) PAST SURGICAL HISTORY: R- Hip Replacement (6 weeks ago) Lumbar x4 (Fusion/Screws) Social History: Smoking: Denies Alcohol: Denies Drugs: Former- Cocaine, Opiates Resides with spouse, Former [employer] Allergies No Known Allergies Allergy (Verified 10/12/19 01:26) HOME MEDICATIONS: Home Medications Medication Instructions Recorded Duloxetine HCl [Cymbalta] 60 mg PO DAILY 10/09/17 Azilsartan Med/Chlorthalidone 1 each PO DAILY 03/09/18 [Edarbyclor 40-25 mg Tablet] Nebivolol HCl [Bystolic] 20 mg PO HS 03/09/18 [place]-3 Fatty Acids [[place]-3] 3,000 mg PO DAILY 03/09/18 Alprazolam [Xanax] 0.25 mg PO DAILY PRN 11/13/18 Aspirin Coated [Ecotrin -] 81 mg PO DAILY 11/13/18 Clopidogrel Bisulfate [Plavix -] 75 mg PO HS 11/13/18 Oxymetazoline HCl [Afrin] 1 spray NS BID 11/13/18 Rosuvastatin Calcium [Crestor] 5 mg PO HS 11/13/18 Tablet Compound Base No.230 500 gm MC DAILY 11/13/18 [Subsolv Rdt] REVIEW OF SYSTEMS CONSTITUTIONAL: Absent: fever, chills, diaphoresis, generalized weakness, malaise, loss of appetite, weight change HEENT: Absent: rhinorrhea, nasal congestion, throat pain, throat swelling, difficulty swallowing, mouth swelling, ear pain, eye pain, visual changes CARDIOVASCULAR: Absent: chest pain, syncope, palpitations, irregular heart rate, lightheadedness, peripheral edema RESPIRATORY: Absent: cough, shortness of breath, dyspnea with exertion, orthopnea, wheezing, stridor, hemoptysis GASTROINTESTINAL: Absent: abdominal pain, abdominal distension, nausea, vomiting, diarrhea, constipation, melena, hematochezia GENITOURINARY: Absent: dysuria, frequency, urgency, hesitancy, hematuria, flank pain, genital pain MUSCULOSKELETAL: Absent: myalgia, arthralgia, joint swelling, back pain, neck pain SKIN: itching Absent: rash, pallor HEMATOLOGIC/IMMUNOLOGIC: Absent: easy bleeding, easy bruising, lymphadenopathy, frequent infections ENDOCRINE: Absent: unexplained weight gain, unexplained weight loss, heat intolerance, cold intolerance NEUROLOGIC: unsteady gait, mental status changes Absent: headache, focal weakness or paresthesias, dizziness, seizure, bladder or bowel incontinence PSYCHIATRIC: anxiety Absent: depression, suicidal or homicidal ideation, hallucinations. PHYSICAL EXAMINATION Vital Signs - 24 hr 10/12/19 01:26 Temperature 98.1 F Pulse Rate 94 H Respiratory 14 Rate Blood Pressure 119/67 O2 Sat by Pulse 95 Oximetry (%) GENERAL: Restless, Fidgety, awake, alert, and oriented x3, in no acute distress. HEAD: Normal with no signs of trauma. EYES: Pupils pinpoint, equal, round and reactive to light, sclera anicteric, conjunctiva clear. No lid lag. Unable to assess- extraocular movements intact, (pt not following verbal prompts) EARS, NOSE, THROAT: Ears normal, nares patent, oropharynx clear without exudates. Moist mucous membranes. NECK: Normal range of motion, supple without lymphadenopathy, JVD, or masses. LUNGS: Breath sounds equal, clear to auscultation bilaterally. No wheezes, and no crackles. No accessory muscle use. HEART: Regular rate and rhythm, normal S1 and S2 without murmur, rub or gallop. ABDOMEN: Soft, nontender, not distended, normoactive bowel sounds, no guarding, no rebound, no masses. No hepatomegaly or splenomegaly. MUSCULOSKELETAL: Normal range of motion at all joints. No bony deformities or tenderness. No CVA tenderness. UPPER EXTREMITIES: 2+ pulses, warm, well-perfused. No cyanosis. No clubbing. No peripheral edema. LOWER EXTREMITIES: 2+ pulses, warm, well-perfused. No calf tenderness. No peripheral edema. NEUROLOGICAL: Cranial nerves II-XII intact. Normal speech. Normal gait. PSYCHIATRIC: Cooperative. Limited eye contact. Appropriate mood and affect. SKIN: Multiple abrasions, to b/l LE. Warm, dry, normal turgor, no rashes or lesions noted, normal capillary refill. Laboratory Results - last 24 hr 10/12/19 10/12/19 10/12/19 01:31 01:31 01:31 WBC 11.6 H RBC 4.19 Hgb 12.1 Hct 36.5 MCV 87.1 MCH 28.8 MCHC 33.1 RDW 14.2 Plt Count 349 MPV 6.4 L Absolute Neuts (auto) 7.1 Neutrophils % 61.3 Lymphocytes % 23.8 Monocytes % 10.6 H Eosinophils % 3.3 Basophils % 1.0 Nucleated RBC % 0 PT with INR 11.80 INR 1.00 PTT (Actin FS) 26.8 VBG pH POC VBG pCO2 POC VBG pO2 VBG HCO3 VBG O2 Sat (Meg) VBG Base Excess Sodium 140 Potassium 4.1 Chloride 104 Carbon Dioxide 29 Anion Gap 7 L BUN 21.8 H Creatinine 1.8 H Est GFR (CKD-EPI)AfAm 47.37 Est GFR (CKD-EPI)NonAf 40.87 Random Glucose 111 H Calcium 9.2 Phosphorus 7.6 H Magnesium 2.2 Total Bilirubin 0.3 AST 28 ALT 30 Alkaline Phosphatase 145 H Ammonia Creatine Kinase 452 H Creatine Kinase Index 0.9 CK-MB (CK-2) 4.4 H Troponin I < 0.02 Total Protein 7.3 Albumin 4.0 Vitamin B12 481 Serum Folate 17 TSH 2.09 D Salicylates Acetaminophen Alcohol, Quantitative < 3 10/12/19 10/12/19 10/12/19 01:31 01:31 02:18 WBC RBC Hgb Hct MCV MCH MCHC RDW Plt Count MPV Absolute Neuts (auto) Neutrophils % Lymphocytes % Monocytes % Eosinophils % Basophils % Nucleated RBC % PT with INR INR PTT (Actin FS) VBG pH 7.288 L POC VBG pCO2 65.8 H POC VBG pO2 47.3 VBG HCO3 30.8 H VBG O2 Sat (Meg) 77.0 VBG Base Excess 2.5 H Sodium Potassium Chloride Carbon Dioxide Anion Gap BUN Creatinine Est GFR (CKD-EPI)AfAm Est GFR (CKD-EPI)NonAf Random Glucose Calcium Phosphorus Magnesium Total Bilirubin AST ALT Alkaline Phosphatase Ammonia 40.20 H Creatine Kinase Creatine Kinase Index CK-MB (CK-2) Troponin I Total Protein Albumin Vitamin B12 Serum Folate TSH Salicylates < 1.7 L Acetaminophen < 2.0 Alcohol, Quantitative ASSESSMENT/PLAN: This is a 59 y/o male with a PMHx of HTN, HLD, 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 Admitted to [facility] for Acute Metabolic Encephalopathy, Hyperammonemia, TAI for further evaluation of their emergent condition. Plan: See Problem List FEN PO fluids as tolerated Replete lytes prn Low Na Diet DVT ppx OOB SCDs Heparin SQ Dispo: Requires Inpatient Care Family Medical History Family History: Unable to Obtain Problem List - Problem (1) Acute metabolic encephalopathy Assessment/Plan: Likely secondary to Medication vs Illicit Drug vs Infection vs Electrolyte Imbalance Head CT- neg ICH Appreciate Neurology consult Appreciate Psych consult Ammonia level 40 UDT- +benzos, amphetamine (pt on both at home) MDMA, ?false positive Neuro checks Fall Precautions Constant Supervision Monitor CBC, CMP Monitor vitals Code(s): G93.41 - METABOLIC ENCEPHALOPATHY (2) TAI (acute kidney injury) Assessment/Plan: Likely secondary to Dehydration vs Medication Gentle IVF Monitor CMP Consider Renal US Appreciate Nephrology consult Avoid Nephrotoxic meds Code(s): N17.9 - ACUTE KIDNEY FAILURE, UNSPECIFIED (3) Hyperphosphatemia Code(s): E83.39 - OTHER DISORDERS OF PHOSPHORUS METABOLISM (4) CVA (cerebral vascular accident) Assessment/Plan: Head CT- reviewed, no acute changes Fall Precautions Will continue to monitor and treat with interventions accordingly Code(s): I63.9 - CEREBRAL INFARCTION, UNSPECIFIED (5) Hypercholesterolemia Assessment/Plan: stable Continue home med Code(s): E78.00 - PURE HYPERCHOLESTEROLEMIA, UNSPECIFIED (6) Hypertension Assessment/Plan: stable Monitor BP Continue home med Monitor renal function Code(s): I10 - ESSENTIAL (PRIMARY) HYPERTENSION Qualifiers: (7) Encounter for screening laboratory testing for COVID-19 virus Assessment/Plan: [employer] 1, low risk Covid PCR- pending Isolation Precautions Code(s): Z11.59 - ENCOUNTER FOR SCREENING FOR OTHER VIRAL DISEASES Visit type - Emergency Visit Emergency Visit: Yes ED Registration Date: 10/12/19 Care time: The patient presented to the Emergency Department on the above date and was hospitalized for further evaluation of their emergent condition. - New Patient This patient is new to me today: Yes Date on this admission: 10/12/19 - Critical Care Critical Care patient: No
[2019-10-12 05:45] LABS: COCAINE, UR NEGATIVE ng/ml (CUTOFF=300); METHADONE, UR NEGATIVE ng/ml (CUTOFF=300); OPIATES, URI NEGATIVE ng/ml (CUTOFF=300); PHENCYCLIDINE,URINE NEGATIVE ng/ml (CUTOFF=25); URINE BARBITURATES NEGATIVE ng/ml (CUTOFF=200)
[2019-10-12 06:37] LABS: URINE AMPHETAMINES POSITIVE ng/ml (CUTOFF=500); URINE BENZODIAZEPINES POSITIVE ng/ml (CUTOFF=200)
--- NOTE | 2019-10-12 12:34 | PN ---
Progress Note, Physician History of Present Illness: pt seen/ examined chart reviewed awake/ comfortable Mild anxiety + not aggressive Wants to go home wants to eat denies pain - Current Medication List Current Medications: Active Medications Aspirin (Ecotrin -) 81 mg PO DAILY MARIAELENA Duloxetine HCl (Cymbalta -) 60 mg PO DAILY MARIAELENA Non-Formulary Medication ([place]-3 Fatty Acids [[place]-3]) 3,000 mg PO DAILY MARIAELENA Non-Formulary Medication (Nebivolol Hcl [Bystolic]) 20 mg PO HS MARIAELENA Non-Formulary Medication (Azilsartan Med/Chlorthalidone [Edarbyclor 40-25 Mg Tablet]) 1 each PO DAILY MARIAELENA Rosuvastatin Calcium (Crestor -) 5 mg PO HS MARIAELENA - Objective Vital Signs: Vital Signs Temperature 98.4 F 10/12/19 06:00 Pulse Rate 98 H 10/12/19 06:00 Respiratory Rate 18 10/12/19 06:00 Blood Pressure 155/54 L 10/12/19 06:00 O2 Sat by Pulse Oximetry (%) 98 10/12/19 06:00 Constitutional: Yes: No Distress, Anxious Neck: Yes: Supple Cardiovascular: Yes: Regular Rate and Rhythm Respiratory: Yes: CTA Bilaterally Gastrointestinal: Yes: Normal Bowel Sounds, Soft Edema: No Neurological: Yes: Alert Psychiatric: Yes: Alert Labs: CBC, BMP 10/12/19 01:31 10/12/19 01:31 INR, PTT INR 1.00 (0.83-1.09) 10/12/19 01:31 - ....Imaging Cat Scan: Report Reviewed Problem List - Problems (1) TAI (acute kidney injury) Code(s): N17.9 - ACUTE KIDNEY FAILURE, UNSPECIFIED (2) Acute metabolic encephalopathy Code(s): G93.41 - METABOLIC ENCEPHALOPATHY (3) Encounter for screening laboratory testing for COVID-19 virus Code(s): Z11.59 - ENCOUNTER FOR SCREENING FOR OTHER VIRAL DISEASES Assessment/Plan overall much better +ve Ectasy Pt on Adderal meds reviewed with pts PMD Pt not on Plavix continue meds d/c 1! 1 sitter Psych consult No issues with feeding Will d/c later today Drink fluids Repeat bmp next week with PMD Counselled about drugs Pt in agreement Will follow D/W rn also
--- NOTE | 2019-10-12 12:48 | EKG ---
Test Reason : Blood Pressure : / mmHG Vent. Rate : 097 BPM Atrial Rate : 097 BPM P-R Int : 182 ms QRS Dur : 072 ms QT Int : 342 ms P-R-T Axes : 046 053 061 degrees QTc Int : 434 ms NORMAL SINUS RHYTHM SEPTAL INFARCT (CITED ON OR BEFORE 19-DEC-2017) ABNORMAL ECG WHEN COMPARED WITH ECG OF 13-NOV-2018 20:58, VENT. RATE HAS INCREASED BY 32 BPM QUESTIONABLE CHANGE IN INITIAL FORCES OF ANTEROSEPTAL LEADS Confirmed by YURIDIA GONZALES MD ([id number]) on 10/12/2019 12:48:35 PM Referred By: Confirmed By:YRUIDIA GONZALES MD
--- NOTE | 2019-10-12 14:06 | CON.PSY ---
Psychiatry Consult Chief Complaint: 59 Year old marrierd male admitted from Home for erratic Behaviour.. Patient seen for Psych eval. Has a history of anxiety, patient denies any Depression. History of CVa, HTN , Hip Surgery. Lives a5t home with Family. No Psych Admissions. been on Cymbalta 60 mgt po od for anxiety.. - Previous Psychiatric Treatment Outpatient: More than 6 mos ago Inpatient: None - Previous Substance Abuse Treatment Outpatient: None Inpatient: None - Reason for Previous Treatment Reason for Previous Treatment: Anxiety or Panic Disorder - Current Medications Current Medications: Active Medications Aspirin (Ecotrin -) 81 mg PO DAILY MARIAELENA Duloxetine HCl (Cymbalta -) 60 mg PO DAILY MARIAELENA Losartan Potassium (Cozaar -) 50 mg PO DAILY MARIAELENA Nebivolol (Bystolic -) 20 mg PO HS MARIAELENA Non-Formulary Medication ([place]-3 Fatty Acids [[place]-3]) 3,000 mg PO DAILY MARIAELENA Rosuvastatin Calcium (Crestor -) 5 mg PO HS MARIAELENA - Allergies Allergies: Allergies Allergy/AdvReac Type Severity Reaction Status Date / Time No Known Allergies Allergy Verified 10/12/19 01:26 - Current Living Status Usual Living Arrangement: With Spouse - Current Mental Status Evaluation Appearance: Well Groomed Attitude: Cooperative - Affect Affect: Full Range Appropriateness: Appropriate to Content - Mood Mood: Euthymic - Speech/Language Expressive: Coherent - Psychomotor Activity Psychomotor Activity: Normal - Thought Process Thought Process: Intact - Thought Content Hallucinations: Absent Delusions: Absent - Self Perception Self Perception: No Impairment - Cognition Attention: Alert Orientation: Time Memory, Immediate Recall: Intact Memory, Short Term: 3/3 Memory, Remote with Promptin/3 - Concentration Serial Sevens Intact: Yes Simple Calculations Intact: Yes - Abstraction Proverb Interpretation: Intact Judgement: Intact - Insight Insight: Intact - Impulse Control Impulse Control: Good Control - Suicidal Ideation Suicidal Ideation: No - Homicidal Ideation Homicidal Ideation: No Assessment/Plan 1) d/c 1:1. 2) Continue with Cymbalta 60 mg fopr anxiety. 3) Patient is not suicidal and appears Cognitivly intact..
--- NOTE | 2019-10-12 14:22 | DS ---
Physical Examination Vital Signs: Vital Signs Temperature 98.7 F 10/12/19 14:17 Pulse Rate 89 10/12/19 14:17 Respiratory Rate 20 10/12/19 14:17 Blood Pressure 118/81 10/12/19 14:17 O2 Sat by Pulse Oximetry (%) 98 10/12/19 06:00 Labs: CBC, BMP 10/12/19 01:31 10/12/19 01:31 Discharge Summary Problems reviewed: Yes Reason For Visit: ACUTE KIDNEY INJURY, JERKY BODY MOVEMENTS, ALTERED Current Active Problems TAI (acute kidney injury) (Acute) AMS (altered mental status) (Acute) Acute metabolic encephalopathy (Acute) Encounter for screening laboratory testing for COVID-19 virus (Acute) Hyperphosphatemia (Acute) Jerky body movements (Acute) Condition: Stable - Instructions Referrals: Ha Cordero MD [Primary Care Provider] - - Home Medications Comprehensive Discharge Medication List: Ambulatory Orders Duloxetine HCl [Cymbalta] 60 mg PO DAILY 10/09/17 --- Changed to 30 mg daily Azilsartan Med/Chlorthalidone [Edarbyclor 40-25 mg Tablet] 1 each PO DAILY 03/09/18 Nebivolol HCl [Bystolic] 20 mg PO HS 03/09/18 [place]-3 Fatty Acids [[place]-3] 3,000 mg PO DAILY 03/09/18 Alprazolam [Xanax] 0.25 mg PO DAILY PRN 11/13/18 Aspirin Coated [Ecotrin -] 81 mg PO DAILY 11/13/18 Oxymetazoline HCl [Afrin] 1 spray NS BID 11/13/18 Rosuvastatin Calcium [Crestor] 5 mg PO HS 11/13/18 Tablet Compound Base No.230 [Subsolv Rdt] 500 gm MC DAILY 11/13/18 Losartan Potassium [Cozaar -] 50 mg PO DAILY tablet 10/12/19
[2019-10-12 17:35] VITALS: BP 100/60; PULSE 80; TEMP 98.2; BMI 29.5
[2019-10-12] MEDS ORDERED: NEBIVOLOL 10 MG TABLET (FP) PO SCH (22:00)
[2019-10-12] MEDS ORDERED: ROSUVASTATIN CA 5 MG TABLET (FP) PO SCH (22:00)
[2019-10-13] MEDS ORDERED: ASPIRIN COATED 81 MG TABLET.EC PO SCH (10:00)
[2019-10-13] MEDS ORDERED: DULoxetine HCL 30 MG CAPSULE.DR PO SCH (10:00)
[2019-10-13] MEDS ORDERED: OMEGA PO SCH (10:00)
[2019-10-13] MEDS ORDERED: LOSARTAN POTASSIUM 50 MG TABLET (FP) PO SCH (10:00)
[2019-10-13] MEDS ORDERED: FATTY ACIDS PO SCH (10:00)
== END 2019-10-12 18:54 | disposition home or self-care (01) | DRG 682 ==
LOC: JER 01:10 → JERBED 02:42 → J8W 08:14
PROVIDERS: ADMIT Internal Medicine; ATTEND Internal Medicine
DX: N17.9 Acute kidney failure, unspecified (principal); G93.41 Metabolic encephalopathy; H53.462 Homonymous bilateral field defects, left side; I10 Essential (primary) hypertension; E78.5 Hyperlipidemia, unspecified; R26.81 Unsteadiness on feet; E83.39 Other disorders of phosphorus metabolism; R33.9 Retention of urine, unspecified; G25.3 Myoclonus; F41.9 Anxiety disorder, unspecified; E78.00 Pure hypercholesterolemia, unspecified; N13.2 Hydronephrosis with renal and ureteral calculous obstruction
CPT/HCPCS: 36415; 70450-TC; 71045-TC-FY; 74176-TC; 76775-TC; 80053; 80307; 81003; 82140; 82550; 82553; 82607; 82746; 82803; 83735; 83970; 84100; 84443; 84484; 85025; 85610; 85730; 87040; 87086; 93005; 93010; 99285-25; G0480; U0003

== ENCOUNTER 2020-06-11 20:19 | Inpatient (IN) | payer OTHER, BC ==
[2020-06-11] MEDS ORDERED: NALOXONE HCL 0.4 MG/ML VIAL ONE (20:51)
[2020-06-11 21:25] VITALS: BMI 26.7
[2020-06-11 22:36] LABS: BASO % 0.3 % (0-2.0); EOS % 0.4 % (0-4.5); HEMATOCRIT 41.1 % (35.4-49); HEMOGLOBIN 13.8 GM/dL (11.7-16.9); LYMPH % 9.2 % (8-40); MCH 29.2 pg (25.7-33.7); MCHC 33.6 g/dl (32.0-35.9); MEAN CELL VOLUME 86.8 fl (80-96); MEAN PLT VOLUME 6.8 fl (7.5-11.1); MONO % 8.8 % (3.8-10.2); NEUT % 81.3 % (42.8-82.8); PLATELET COUNT 255 K/MM3 (134-434); RBC 4.74 M/mm3 (4.00-5.60); RDW 14.2 % (11.9-15.9); WHITE BLOOD COUNT 12.3 K/mm3 (4.0-10.0)
[2020-06-11 22:43] LABS: INR 1.1 (0.83-1.09); PROTHROMBIN TIME (PATIENT) 13.3 SEC (9.7-13.0)
[2020-06-11 22:46] LABS: ACTIVATED PTT 26.8 SECONDS (25.2-36.5)
[2020-06-11 22:56] LABS: CHLORIDE 103 mmol/L (98-107); SODIUM 139 mmol/L (136-145)
[2020-06-11 22:58] LABS: ALBUMIN 4.2 g/dl (3.4-5.0); ANION GAP 8 MMOL/L (8-16); BLOOD UREA NITROGEN 15.5 mg/dL (7-18); CALCIUM 9.2 mg/dL (8.5-10.1); CO2 29 mmol/L (21-32); GLUCOSE,RANDOM 90 mg/dL (74-106); MAGNESIUM 2.3 mg/dL (1.8-2.4)
[2020-06-11 23:02] LABS: CREATININE 1.4 mg/dL (0.55-1.3); SGOT/AST 18 U/L (15-37); SGPT/ALT 23 U/L (13-61)
[2020-06-11 23:03] LABS: BILIRUBIN,TOTAL 0.5 mg/dL (0.2-1); TOT PROT 7.3 g/dl (6.4-8.2)
[2020-06-11 23:05] LABS: ALK PHOS 129 U/L (45-117)
[2020-06-11 23:49] LABS: EPI CELLS >36 /uL (0-25.1); HYALINE CASTS 23 /uL (0-3.1); URINE APPEARANCE CLOUDY; URINE BACTERIA 78 /uL (0-1359); URINE BILIRUBIN NEGATIVE (NEGATIVE); URINE COLOR YELLOW; URINE GLUCOSE (UA) NEGATIVE (NEGATIVE); URINE KETONE NEGATIVE (NEGATIVE); URINE LEUK ESTERASE NEGATIVE (NEGATIVE); URINE NITRITE NEGATIVE (NEGATIVE); URINE PROTEIN 1+ (NEGATIVE); URINE RBC 6 /uL (0-23.9); URINE UROBILINOGEN 0.2 mg/dL (0.2-1.0); URINE WBC 29 /uL (0-25.8)
[2020-06-11 23:56] LABS: COCAINE, UR NEGATIVE ng/ml (CUTOFF=300); METHADONE, UR NEGATIVE ng/ml (CUTOFF=300); OPIATES, URI NEGATIVE ng/ml (CUTOFF=300); PHENCYCLIDINE,URINE NEGATIVE ng/ml (CUTOFF=25); URINE AMPHETAMINES POSITIVE ng/ml (CUTOFF=500); URINE BARBITURATES NEGATIVE ng/ml (CUTOFF=200); URINE BENZODIAZEPINES POSITIVE ng/ml (CUTOFF=200)
[2020-06-12] MEDS ORDERED: ACETAMINOPHEN 325 MG TABLET (FP) PO ONE (08:57)
[2020-06-12] MEDS ORDERED: ACETAMINOPHEN 325 MG TABLET (FP) ONE (09:03)
[2020-06-12 09:10] VITALS: BP 115/90; PULSE 85; TEMP 97.9
[2020-06-12] MEDS ORDERED: CEFTRIAXONE 1 GM/50 ML BAG ONE (09:29)
[2020-06-12] MEDS ORDERED: CHLORTHALIDONE 25 MG TABLET PO SCH (10:00)
[2020-06-12] MEDS ORDERED: LOSARTAN POTASSIUM 50 MG TABLET PO SCH (10:00)
[2020-06-12] MEDS ORDERED: CEFTRIAXONE 1 GM in DEXTROSE 5%-WATER 50 ML IVPB SCH (10:00)
[2020-06-12] MEDS ORDERED: ASPIRIN COATED 81 MG TABLET.EC PO SCH (10:00)
[2020-06-12] MEDS ORDERED: NEBIVOLOL 10 MG TABLET (FP) PO SCH (22:00)
[2020-06-12] MEDS ORDERED: ROSUVASTATIN CA 5 MG TABLET (FP) PO SCH (22:00)
== END 2020-06-12 09:59 | disposition home or self-care (01) | DRG 897 ==
LOC: JER 20:19 → JERBED 23:47
PROVIDERS: ADMIT Hospitalist; ATTEND Internal Medicine
DX: F19.10 Other psychoactive substance abuse, uncomplicated (principal); I10 Essential (primary) hypertension; D72.829 Elevated white blood cell count, unspecified; F41.8 Other specified anxiety disorders; R45.1 Restlessness and agitation
CPT/HCPCS: 36415; 70450-TC; 71045-TC-FY; 72125-TC; 80053; 80307; 81003; 82962; 83735; 84443; 85025; 85610; 85730; 87086; 87186; 93005; 93010; 99285-25; C9803; U0003; U0005